=== PATIENT | female | born 1950 | race Caucasian/White ===

== ENCOUNTER 2023-09-24 06:48 | Observation (INO) ==
--- NOTE | 2023-09-02 11:10 | PAT Medication Instructions ---
Medication Instructions Date of Service September 02, 2023 Home Medications acetaminophen 650 mg tablet,extended release 650 mg PO Q12H PRN albuterol sulfate 90 mcg/actuation aerosol inhaler 1 inh inhalation QID PRN calcium carbonate 600 mg-vitamin D3 10 mcg (400 unit) tablet (Calcium 600 + D(3)) 1 tab PO HS cetirizine 10 mg tablet (Zyrtec) 10 mg PO QAM hydrochlorothiazide 25 mg tablet 25 mg PO QAM ibuprofen 200 mg capsule 600 mg PO QAM levothyroxine 50 mcg tablet (Synthroid) 50 mcg PO QAM lisinopril 10 mg tablet 15 mg PO BID lorazepam 1 mg tablet (Ativan) 5 mg PO HS PRN melatonin 5 mg tablet 5 mg PO HS PRN lizexyvfyjpr-trtgdcsg-pbwcas tablet 1 tab PO HS tramadol 50 mg tablet 50 mg PO Q6H PRN ASK your surgeon for instructions ibuprofen 200 mg capsule 600 mg PO QAM DO NOT take the morning of surgery cetirizine 10 mg tablet (Zyrtec) 10 mg PO QAM hydrochlorothiazide 25 mg tablet 25 mg PO QAM lisinopril 10 mg tablet 15 mg PO BID Take morning of surgery With a small sip of water, OTHERWISE NOTHING TO EAT OR DRINK AFTER MIDNIGHT: acetaminophen 650 mg tablet,extended release 650 mg PO Q12H PRN(if needed) albuterol sulfate 90 mcg/actuation aerosol inhaler 1 inh inhalation QID PRN(use if needed; please bring with you to hospital day of surgery if possible) levothyroxine 50 mcg tablet (Synthroid) 50 mcg PO QAM tramadol 50 mg tablet 50 mg PO Q6H PRN(if needed) Take evening before surgery acetaminophen 650 mg tablet,extended release 650 mg PO Q12H PRN(if needed) albuterol sulfate 90 mcg/actuation aerosol inhaler 1 inh inhalation QID PRN(if needed) calcium carbonate 600 mg-vitamin D3 10 mcg (400 unit) tablet (Calcium 600 + D(3)) 1 tab PO HS lisinopril 10 mg tablet 15 mg PO BID lorazepam 1 mg tablet (Ativan) 5 mg PO HS PRN(if needed) melatonin 5 mg tablet 5 mg PO HS PRN(if needed) tramadol 50 mg tablet 50 mg PO Q6H PRN(if needed) jfgrdilnywuq-gnnzjpyv-ybprxe tablet 1 tab PO HS Other Notes If you have any questions please call us at [phone] or [phone] or [phone] or [phone]
--- NOTE | 2023-09-08 11:53 | Anesthesiology Consultation ---
Date of Service September 08, 2023 Assessment & Plan (1) Encounter for pre-operative examination: - S pre-operative evaluation 09/15/23. PAT testing to be faxed to S PCP. - patient anesthesia concerns: she has concern with experience of awareness during bunionectomy. We had a detailed discussion on general vs neuraxial anesthesia, she indicates comfort with plan for neuraxial anesthesia with sedation. She will contact PAT if additional questions or concerns prior to surgery arise prior to surgery. Chart Review Chart Review: Pending: Refer to Additional Notes / Consult section and Patient seen in Pre Admission Testing Teaching & Discussion Pre-Anesthesia Teaching/Discussion Notes: Instructed NPO after midnight before surgery, except medications with 15 cc of water. Medication instructions provided according to the PAT guidelines. History Surgery Operation Date: 09/24/23 07:00 Proposed Procedures p Right Total Knee Arthroplasty - Maxx Weiner MD Height/Weight Height: 5 ft 3.5 in Weight: 110.1 kg Allergies Allergy/AdvReac Type Severity Reaction Status Date / Time moxifloxacin [From Avelox] Allergy Severe severe Verified 09/01/23 10:49 hypotension/syncope clarithromycin [From Biaxin] AdvReac Severe Gastrointestinal Verified 09/01/23 10:49 Upset rosuvastatin [From Crestor] AdvReac Intermediate myalgias Verified 09/08/23 14:49 Medications Home Medications Medication Instructions Recorded Confirmed Last Taken acetaminophen 650 mg 650 mg PO Q12H PRN Pain 09/01/23 09/01/23 Unknown tablet,extended release albuterol sulfate 90 mcg/actuation 1 inh inhalation QID PRN Wheezing 09/01/23 09/01/23 Unknown aerosol inhaler calcium carbonate 600 mg-vitamin 1 tab PO HS 09/01/23 09/01/23 Unknown D3 10 mcg (400 unit) tablet (Calcium 600 + D(3)) cetirizine 10 mg tablet (Zyrtec) 10 mg PO QAM 09/01/23 09/01/23 Unknown hydrochlorothiazide 25 mg tablet 25 mg PO QAM 09/01/23 09/01/23 Unknown ibuprofen 200 mg capsule 600 mg PO QAM 09/01/23 09/01/23 Unknown levothyroxine 50 mcg tablet 50 mcg PO QAM 09/01/23 09/01/23 Unknown (Synthroid) lisinopril 10 mg tablet 15 mg PO BID 09/01/23 09/01/23 Unknown lorazepam 1 mg tablet (Ativan) 5 mg PO HS PRN Restless Leg(S) 09/01/23 09/01/23 Unknown melatonin 5 mg tablet 5 mg PO HS PRN Sleep 09/01/23 09/01/23 Unknown srbymaiwbwza-toyprigd-mtumqk tablet 1 tab PO HS 09/01/23 09/01/23 Unknown tramadol 50 mg tablet 50 mg PO Q6H PRN Pain 09/01/23 09/01/23 Unknown Past Medical History Medical History Anxiety Asthma well controlled, rare res inh use-last use several weeks ago Degenerative disc disease History of COVID-06 Jul 2021 > not hospitalized History of diverticulitis 2020 Hyperlipidemia hx of > no meds Hypertension controlled, stable per pt Hypothyroidism Neuropathy right foot s/p previous surgery Restless legs Patient denies h/o stroke, seizures, heart attack, heart failure, DM, blood clots/DVTs or blood transfusions. Exercise / Class Metabolic Activity III < 4 Walking/Shop/Light housework (denies chest discomfort or shortness of breath with usual activities) Past Family History Family History Grandmother (Maternal) Diabetes Past Surgical History Surgical History H/O ovarian cystectomy right History of bunionectomy of right great toe History of cataract surgery bilat History of cholecystectomy History of colonoscopy January 2023 History of repair of rotator cuff left Hx of foot surgery bilat feet and hardware removed from right foot with fusions in place [place] teeth extracted Past Anesthesia History No Family Hx of Anesthesia Complications and Other (awareness during bunionectomy) History of PONV No Hx of PONV and No Hx of Motion Sickness Social History Smoking Status: Never smoker Do You Dip or Chew Tobacco: No Hx Alcohol Use: Yes alcohol intake frequency: holidays/special occasions only Hx Substance Use: No substance use type: does not use Review of Systems Patient denies chest pain, shortness of breath, dyspnea on exertion, snoring, witnessed apneas, reflux, fever, chills, cough, wheezing, or palpitations. Physical Exam Vital Signs Vitals BP 128/71 P 70 TEMP 98.1 SP02 97% on RA RESP 17 Physical Patient resting comfortably in chair in no acute distress, alert and oriented, responding appropriately throughout visit Full cervical extension range of motion without pain TMD < 3 finger breadths Mallampati Score 2 Dentition: upper right partial and several crowns, denies chipped or loose teeth, implants or bridges Lungs: normal respiratory effort. Good air movement, clear throughout to auscultation, no adventitious breath sounds Cardiac: regular rate and rhythm, no murmurs noted Carotid arteries: negative bruit bilat Lab Results Anesthesia Preop Results Results Anesthesia Widget: WBC 9.52 K/ul (4.8-10.8) 09/08/23 Hgb 12.4 g/dl (12.0-16.0) 09/08/23 Hct 37.5 % (37.0-47.0) 09/08/23 Plt 388 K/uL (130-400) 09/08/23 Na 140 mmol/L (136-145) 09/08/23 K 3.6 mmol/L (3.5-5.1) 09/08/23 Cl 104 mmol/L (98-107) 09/08/23 CO2 29 mmol/L (21-32) 09/08/23 BUN 21 mg/dl (6-23) 09/08/23 Creat 0.84 mg/dl (0.6-1.2) 09/08/23 Glucose Level 86 mg/dl (70-99(Fasting)) 09/08/23 PT 10.6 Seconds (9.0-12.0) 09/08/23 PTT 28 Seconds (21-31) 09/08/23 INR 1.0 (0.9-1.1) 09/08/23 Urine Color Yellow 09/08/23 Urine Appearance Clear (Clear) 09/08/23 Urine pH 5.0 (4.5-7.5) 09/08/23 Urine Specific [place] 1.017 (1.000-1.030) 09/08/23 Urine Protein Negative (Negative) 09/08/23 Urine Glucose (UA) Negative (Negative) 09/08/23 Urine Ketones Negative (Negative) 09/08/23 Urine Blood Negative (Negative) 09/08/23 Urine Nitrite Negative (Negative) 09/08/23 Urine Bilirubin Negative (Negative) 09/08/23 Urine Urobilinogen Negative (Negative) 09/08/23 Urine Leukocyte Esterase 1+ (Negative) H 09/08/23 Urine WBC (Auto) 1-5 /hpf (0-5) 09/08/23 Urine RBC (Auto) 0-4 /hpf (0-4) 09/08/23 Urine Hyaline Casts (Auto) 0 /lpf (0-5) 09/08/23 Urine Epithelial Cells (Auto) >30 /lpf (0-5) H 09/08/23 Urine Bacteria (Auto) Negative (Negative) 09/08/23 Blood Type O Negative 09/08/23 Antibody Screen NEGATIVE 09/08/23 Testing Electrocardiogram Date: 09/08/23 NSR, rate 68 bpm Low voltage QRS Chest X-Ray Date: 09/08/23 No acute chest disease.
--- NOTE | 2023-09-24 06:28 | History & Physical Bridge Note ---
Date of Service September 24, 2023 History & Physical Bridge Note I have examined the patient, reviewed the History & Physical and in the interval since the performance of the History & Physical I have noted the following changes of clinical significance: no changes noted
[~2023-09-24 06:48] MED LIST: BUPIVACAINE 0.5 % 5 MG/1 ML PF 10ML VIAL ONE; ROPIVACAINE 0.5% 5 MG/ML 30 ML VIAL ONE; ROPIVACAINE 0.5% HCL/PF 246 MG, Ketorolac (*for OR use only*) 30 MG, EPINEPHrine 30MG/3... INFIL SCH
[2023-09-24] MEDS: LR 60ML/HR IV SCH (07:46)
[2023-09-24] MEDS: LR 500ML BOLUS, THEN 15ML/HR IV SCH (07:47)
[2023-09-24] MEDS ORDERED: fentaNYL citrate PF 100 MCG/2 ML VIAL ONE (07:49)
[2023-09-24] MEDS ORDERED: MIDAZOLAM HCL 1 MG/ML 2ML VIAL ONE (07:49)
--- OUTSIDE RECORDS SUMMARY | 2023-09-24 08:48 | External Medical Summary | Summary of Care ---
Author Name Unknown Organization [facility] Address [address] [place] [address] Phone [phone] Care Team Providers Care Fruit Stuffer Name Role Phone Palmira Dutton PA-C Primary Care Provider Encounter Details Date Type Department Care Team (Late st Contact Info) Description 09/10/2023 Orders Only Family Practice, [facility] [address], [place] [id number] [phone] Palmira Dutton PA-C [address] [place] [address] Allergies Active Allergy Reactions Criticality Noted Date Comments Moxifloxacin Hcl In Nacl 09/07/2008 BP dropped dramatically Quinolones 09/07/2008 Pt states she is allergic to avelox-unsure which one-but BP dropped dramatically Clarithromycin 06/15/2018 Severe diarrhea Cat Dander 06/15/2018 Rosuvastatin Muscle pain 04/16/2021 documented as of this encounter (statuses as of 09/10/2023) Medications Medication Sig Dispensed Refills Start Date End Date Status IBUPROFEN 600 MG PO TABS Take by mouth daily. 0 Active Multiple Vitamins-Minerals (THERAPEUTIC MULTIVIT/MINERAL) TABS Take 1 Tab by mouth. 0 Active acetaminophen (TYLENOL) 500 MG Tablet Take 2 Tablets by mouth daily as needed. 0 Active Calcium Carbonate-Vitamin D 600-400 MG-UNIT per tablet Take 1 Tablet by mouth. 0 Active albuterol HFA (PROVENTIL HFA) 108 (90 BASE) MCG/ACT inhaler Inhale 1 Puff by mouth every 6 hours as needed for Wheezing. 1 Inhaler 3 03/31/2019 Active Cetirizine HCl 10 MG Oral Capsule 0 Active Trospium Chloride 20 MG Oral Tablet (Sanctura)Indications :Overactive bladder Take 1 Tablet by mouth in the morning and 1 Tablet before bedtime. 60 Tablet 5 03/20/2023 Active hydroCHLOROthiazide 25 MG Oral Tablet (Hydrodiuril)Indicati ons:Essential hypertension with goal blood pressure less than 140/90 Take 1 Tablet by mouth in the morning. 90 Tablet 3 04/08/2023 Active Lisinopril 10 MG Oral Tablet (Prinivil)Indications :Essential hypertension with goal blood pressure less than 140/90 TAKE 1 AND 1/2 TABLETS BY MOUTH TWICE DAILY 270 Tablet 3 04/08/2023 Active traMADol HCl 50 MG Oral Tablet (Ultram)Indications:B ilateral primary osteoarthritis of knee Take 1 Tablet by mouth every 6 hours as needed for Pain, Severe. 12 Tablet 0 04/08/2023 Active LORazepam 0.5 MG Oral Tablet (Ativan) Take 1 Tablet by mouth daily as needed for Anxiety. 30 Tablet 5 05/12/2023 Active Levothyroxine Sodium 50 MCG Oral Tablet (Levoxyl) take 1 tablet by mouth every day first thing in the morning at least 30 minutes prioir to breakfast or other meds 90 Tablet 1 07/17/2023 Active documented as of this encounter (statuses as of 09/10/2023) Active Problems Problem Noted Date Diagnosed Date Right knee DJD 01/27/2023 Bilateral primary osteoarthritis of knee 022 Body mass index (BMI) of 40.0 to 44.9 in adult 0 01/25/2019 Overview: Per Obesity protocol Mixed hyperlipidemia 07/08/2018 Essential hypertension with goal blood pressure less than 140/90 07/08/2018 TIFFANIE (generalized anxiety disorder) 07/08/2018 Acquired hypothyroidism 07/08/2018 Overactive bladder 07/08/2018 Tibialis tendinitis 04/19/2009 Flat foot(734) 04/19/2009 Joint pain, foot 11/11/2008 documented as of this encounter (statuses as of 09/10/2023) Resolved Problems Problem Noted Date Diagnosed Date Resolved Date Hx of stress fx 11/05/2011 01/05/2019 documented as of this encounter (statuses as of 09/10/2023) Immunizations Name Administration Dates Next Due PPD 03/10/2018 documented as of this encounter Social History Tobacco Use Types Packs/Day Years Used Date Smoking Tobacco: Never Smokeless Tobacco: Never Alcohol Use Standard Drinks/Week Comments Not Currently 0 (1 standard drink = 0.6 oz pur e alcohol) social PHQ-2 Answer Date Recorded PHQ Adult Total Score 2 04/08/2023 Hunger Vital Sign Answer Date Recorded Within the past 12 months, y ou worried that your food would run out before you got the money to buy more. Never true 09/04/19 23 Within the past 12 months, t he food you bought just didn't last and you didn't have money to get more. Never true 09/04/2022 Sex and Gender Information Value Date Recorded Sex Assigned at Female 02/26/2022 12:03 PM EDT Gender Identity Female 02/26/2022 12:03 PM EDT Sexual Orientation Straight 02/26/2022 12 :03 PM EDT Job Start Date Occupation Industry Not on file Not on file Not on file documented as of this encounter Plan of Treatment Upcoming Encounters Date Type Department Care Team (Late st Contact Info) Description 09/15/2023 8:00 AM EST Office Visit [address] [address] Palmira Dutton PA-C [address] [place] [phone] 10/14/2023 11:40 AM EST Office Visit [address] [address] Palmira Dutton PA-C [address] [place] [phone] Health Maintenance Due Date Last Done Comments COVID-19 Vaccine (#1) 1950 Pneumococcal Vaccine: 65+ Years (1 - PCV) 01/27/1958 Albumin/Creatinine Ratio 01/27/1970 DTaP,Tdap,and Td Vaccines (1 - Tdap) 01/27/1971 Zoster Vaccines (1 of 2) 01/27/2002 Hepatitis B (1 of 3 - Risk 3-dose series) 2012 Influenza Vaccine (FLU shot) (#1) 2023 DXA Scan 04/30/2023 04/30/2016 COLONOSCOPY-ANNUAL AGES 18-100 01/25/2024 01/24/2023, 05/15/2012 GFR 04/04/2024 09/08/2023, 03/18, 08/30/2022, Additional history exists TSH 04/04/2024 04/04/2023, 08/18, 08/20/2021, Additional history exists Depression Screening 04/08/2024 04/08/2023 Mammogram 04/28/2024 04/28/2023, 01/2022, 07/02/2021, Additional history exists Lipid Panel 04/04/2028 04/04/2023, 08/18, 02/22/2022, Additional history exists Colonoscopy Discontinued 01/24/2023, 05/15/2012 Colorectal Cancer Screening Discontinued Cologuard Discontinued Fecal Occult Blood Test Discontinued GARDASIL-HPV IMMUNIZATION SERIES Aged Out No longer eligible based on patient's age to complete this topic MENINGOCOCCAL (MENACTRA/MENVEO) Aged Out No longer eligible based on patient's age to complete this topic Sigmoidoscopy Discontinued documented as of this encounter Medical Devices Implanted Type Area Hand Wood Sander Device Identifier Shelf Expiration Date Model / Serial / Lot Graft Chamber Small [id number] - [id number] Implanted:Qty: 1 on 12/01/2008 [place] [facility] [place] - Human Left: Foot [employer] [id number] / [id number] / Staple Compr [id number] - [id number] Implanted:Qty: 1 on 12/01/2008 [place] [facility] [place]: Foot [employer] [id number] / / [place] S[employer] - [id number] Implanted:Qty: 1 on 03/20/2020 by Isaías Day MD at [facility] Left: Shoulder [employer] 12/16/2023 [id number] / [id number] documented as of this encounter Procedures Procedure Name Priority Date/Time Associated Diagnosis Comments XR CHEST 2 VIEWS Routine 09/08/2023 documented in this encounter Results * XR CHEST 2 VIEWS (09/08/2023) Anatomical Region Laterality Modality Chest Other 09/08/2023 Maxx Weiner MD RADIOLOGY ([facility]) documented in this encounter Advance Directives Latest Code Status on File Code Status Date Activated Date Inactivated Comments Full Code 03/20/2020 11:50 AM 03/20/2020 5:36 PM This o rder reflects the patients wishes and were consensually agreed upon. Code Status History Code Status Date Activated Date Inactivated Comments Full Code 12/01/2008 3:53 PM 12/02/2008 2:42 PM Care Teams Fruit Stuffer Relationship Specialty Start Date End Date Palmira Dutton PA-C [address] [place] [address] PCP - General Physician Car Body Inspector 11/07/18 documented as of this encounter
--- OUTSIDE RECORDS SUMMARY | 2023-09-24 08:48 | External Medical Summary | Summary of Care ---
Author Name Unknown Organization [facility] Address [address] [place] [address] Phone [phone] Care Team Providers Care Shank Sorter Name Role Phone Palmira Dutton PA-C Primary Care Provider Reason for Visit * Reason Comments pre-op exam Right Total Knee Rep lacement - Dr Weiner - surgery is scheduled for 09/24/2023 Encounter Details Date Type Department Care Team (Late st Contact Info) Description 09/15/2023 8:00 AM EST Office Visit [facility] [address] [place], [place] [id number] [phone] Palmira Dutton PA-C [address] [place] [address] Preop examination*; Essential hypertension with goal blood pressure less than 140/90; Osteoarthritis of right knee, unspecified osteoarthritis type; Body mass index (BMI) of 40.0 to 44.9 in adult (HCC) Allergies Active Allergy Reactions Criticality Noted Date Comments Moxifloxacin Hcl In Nacl 09/07/2008 BP dropped dramatically Quinolones 09/07/2008 Pt states she is allergic to avelox-unsure which one-but BP dropped dramatically Clarithromycin 06/15/2018 Severe diarrhea Cat Dander 06/15/2018 Rosuvastatin Muscle pain 04/16/2021 documented as of this encounter (statuses as of 09/15/2023) Medications Medication Sig Dispensed Refills Start Date [...] Active Trospium Chloride 20 MG Oral Tablet (Sanctura)Indicatio ns:Overactive bladder Take 1 Tablet by mouth in the morning and 1 Tablet before bedtime. 60 Tablet 5 03/20/2023 Active hydroCHLOROthiazide 25 MG Oral Tablet (Hydrodiuril)Indica tions:Essential hypertension with goal blood pressure less than 140/90 Take 1 Tablet by mouth in the morning. 90 Tablet 3 04/08/2023 Active Lisinopril 10 MG Oral Tablet (Prinivil)Indicatio ns:Essential hypertension with goal blood pressure less than 140/90 TAKE 1 AND 1/2 TABLETS BY MOUTH TWICE DAILY 270 Tablet 3 04/08/2023 Active traMADol HCl 50 MG Oral Tablet (Ultram)Indications :Bilateral primary osteoarthritis of knee Take 1 Tablet [...] other meds 90 Tablet 1 07/17/2023 Active predniSONE 20 MG Oral Tablet (Deltasone) Take 1 Tablet by mouth in the morning and 1 Tablet before bedtime. Do all this for 3 days. 6 Tablet 0 06/22/2023 09/15/19 24 Discontinued documented as of this encounter (statuses as of 09/15/2023) Active Problems Problem Noted Date Diagnosed Date [...] as of this encounter (statuses as of 09/15/2023) Resolved Problems Problem Noted Date Diagnosed Date Resolved Date Hx of stress fx 11/05/2011 01/05/2019 documented as of this encounter (statuses as of 09/15/2023) Immunizations Name Administration Dates Next Due PPD [...] on file documented as of this encounter Last Filed Vital Signs Vital Sign Reading Time Taken Comments Blood Pressure 132/80 09/15/2023 8:11 AM EST Pulse 99 09/15/2023 8:11 AM EST Temperature 36.7 C (98 F) 09/15/2023 8:11 AM EST Respiratory Rate 18 09/15/2023 8:11 AM EST Oxygen Saturation 98% 09/15/2023 8:11 AM EST Inhaled Oxygen Concentration - - Weight 109.4 kg (241 lb 1.6 oz) 09/15/2023 8:11 AM EST Height 162.6 cm (5' 4") 09/15/2023 8:11 AM EST Body Mass Index 41.38 09/15/2023 8:11 AM EST documented in this encounter Progress Notes * Palmira Dutton PA-C - 09/15/2023 8:20 AM EST Subjective: Maeve Gill is a 73 year old female. Presents at the request of Dr. Weiner for medical clearance for right total knee, surgery isscheduled for at [facility]. Major Risk Factors for Cardiac Events: History of AR, cardiac revascularization, cardiac bypass: No History of cerebrovascular accident or TIA: No History of systolic heart failure: No History of insulin-dependent diabetes: No History of chronic kidney disease (creatinine greater than 2): No Anesthesia History: Type of Anesthesia: spinal, MAC Anesthesia reaction:No History of surgical complications: none Personal history of venous thromboembolic disease: none Functional Assessment: They are able to walk up a flight of stairs, do heavy house work like vacuuming, and grocery shop. The patient's functional status is good (greater than 4 METS). Can take care of self, such as eat, dress or use the toilet=1MET Can walk to block or go up a flight of steps=4 METs Can do heave house work=4-10 METs Can participate in strenuous sports=>10 METs} PHM: Patient Active Problem List Diagnosis Code Joint pain, foot M25.579 Tibialis tendinitis M76.829 Flat foot(734) M21.40 Mixed hyperlipidemia E78.2 Essential hypertension with goal blood pressure less than 140/90 I10 TIFFANIE (generalized anxiety disorder) F41.1 Acquired hypothyroidism E03.9 Overactive bladder N32.81 Body mass index (BMI) of 40.0 to 44.9 in adult (HCC) Z68.41 Bilateral primary osteoarthritis of knee M17.0 Right knee DJD M17.11 Current Outpatient Medications Medication Sig Dispense Refill IBUPROFEN 600 MG PO TABS Take by mouth daily. Multiple Vitamins-Minerals (THERAPEUTIC MULTIVIT/MINERAL) TABS Take 1 Tab by mouth. acetaminophen (TYLENOL) 500 MG Tablet Take 2 Tablets by mouth daily as needed. Calcium Carbonate-Vitamin D 600-400 MG-UNIT per tablet Take 1 Tablet by mouth. albuterol HFA (PROVENTIL HFA) 108 (90 BASE) MCG/ACT inhaler Inhale 1 Puff by mouth every 6 hours asneeded for Wheezing. 1 Inhaler 3 Cetirizine HCl 10 MG Oral Capsule Trospium Chloride 20 MG Oral Tablet (Sanctura) Take 1 Tablet by mouth in the morning and 1 Tablet before bedtime. 60 Tablet 5 hydroCHLOROthiazide 25 MG Oral Tablet (Hydrodiuril) Take 1 Tablet by mouth in the morning. 90 Tablet 3 Lisinopril 10 MG Oral Tablet (Prinivil) TAKE 1 AND 1/2 TABLETS BY MOUTH TWICE DAILY 270 Tablet 3 traMADol HCl 50 MG Oral Tablet (Ultram) Take 1 Tablet by mouth every 6 hours as needed for Pain, Severe. 12 Tablet 0 LORazepam 0.5 MG Oral Tablet (Ativan) Take 1 Tablet by mouth daily as needed for Anxiety. 30 Tablet5 Levothyroxine Sodium 50 MCG Oral Tablet (Levoxyl) take 1 tablet by mouth every day first thing in the morning at least 30 minutes prioir to breakfast or other meds 90 Tablet 1 No current facility-administered medications for this visit. 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/07 traditional serrated adenoma Cyst of ovary 9 cmcyst on ovary on R side/found on CT scan Depressive disorder Diverticulosis of colon 01/24/202302/07 colonoscopy 04/29 colonoscopy Essential hypertension with goal blood pressure less than 140/90 07/08/2018 TIFFANIE (generalized anxiety disorder) 07/08/2018 Joint pain, foot 11/11/2008 Mixed hyperlipidemia 07/08/2018 Past Surgical History: Procedure Laterality Date ARTHO,SHOUL,W/ROTATOR CUFF Left 03/20/2020 ARTHROSCOPY SHOULDER ROTATOR CUFF performed by Isaías Day MD at OR [facility] CATARACT SURGERY,COMPLEX Bilateral COLONOSCOPY 05/15/2012 Diverticulosis DENTAL SURGERY PROCEDURE NEC FOOT/TOE SURGERY NEC Right 12/2014 and 08/31/2019 FUSION OF ANKLE JOINT 12/01/2008 ARTHRODESIS ANKLE performed by VAN CARABALLO at [facility] FUSION OF FOOT BONES, TRIPLE 12/01/2008 TRIPLE ARTHRODESIS performed by VAN CARABALLO at OR [facility] INFORMATION Derm surgery INFORMATION 2013 pelvic mass - benign LIGATE/CUT OVIDUCT(S) REMOVAL OF OVARIAN CYST(S) 05/2012 REMOVE GALLBLADDER 09/02/2013 lap hermelindo Review of patient's allergies indicates: Allergen Reactions Avelox [Moxifloxacin Hcl In Nacl] BP dropped dramatically Avelox [Quinolones] Pt states she is allergic to avelox-unsure which one-but BP dropped dramatically Biaxin [Clarithromycin] Severe diarrhea Cats [Cat Dander] Crestor [Rosuvastatin] Muscle pain Family History Problem Relation Age of Onset Thyroid Disorder Mother Cancer Mother Uterine Hypertension Mother Breast Cancer Sister Thyroid Disorder Sister Cancer Sister Stage 1 breast CA Breast Cancer Sister Other (Sudden ) Uncle (Unspecified) Family Status Relation Status Mo (Not Specified) Sis (Not Specified) Sis Alive UNCLE (Not Specified) Social History Tobacco Use Smoking status: Never Smokeless tobacco: Never Substance Use Topics Alcohol use: Not Currently Comment: social Vaping/E-Cigarette Use Vaping/E-Cigarette Use Never User Vaping/E-Cigarette Substances Vaping/E-Cigarette Devices Review of Systems Constitutional: Negative for chills and fever. Respiratory: Negative for cough and shortness of breath. Cardiovascular: Negative for chest pain and palpitations. Gastrointestinal: Negative for abdominal pain, constipation and diarrhea. Genitourinary: Negative. Musculoskeletal: Positive for arthralgias and gait problem. Skin: Negative for rash. Objective: BP 132/80 (BP Site: Left Arm, BP Position: Sitting, BP Cuff Size: Large) | Pulse 99 | Temp 36.7 C(98 F) (Tympanic) | Resp 18 | Ht 1.626 m (5' 4") | Wt 109.4 kg (241 lb 1.6 oz) | SpO2 98% | BMI 41.38 kg/m | BSA 2.22 m Physical Exam Constitutional: Appearance: Normal appearance. She is obese. Eyes: Extraocular Movements: Extraocular movements intact. Conjunctiva/sclera: Conjunctivae normal. Pupils: Pupils are equal, round, and reactive to light. Neck: Vascular: No carotid bruit. Cardiovascular: Rate and Rhythm: Normal rate and regular rhythm. Heart sounds: Normal heart sounds. No murmur heard. Pulmonary: Effort: Pulmonary effort is normal. Breath sounds: Normal breath sounds. No wheezing. Abdominal: General: Bowel sounds are normal. Palpations: Abdomen is soft. Tenderness: There is no abdominal tenderness. Musculoskeletal: Right knee: Decreased range of motion. Right lower leg: No edema. Left lower leg: No edema. Lymphadenopathy: Cervical: No cervical adenopathy. Neurological: General: No focal deficit present. Mental Status: She is alert and oriented to person, place, and time. Psychiatric: Mood and Affect: Mood normal. Behavior: Behavior normal. ASSESSMENT: Encounter Diagnoses Name Primary? Preop examination Yes Essential hypertension with goal blood pressure less than 140/90 Osteoarthritis of right knee, unspecified osteoarthritis type Body mass index (BMI) of 40.0 to 44.9 in adult (HCC) Labs and EKG reviewed. Labs are unremarkable (UA not indicative of a UTI) EKG by my review is significant for NSR. PLAN: Patient is medically cleared. Revised Cardiac Risk Index (RCRI): Six independent predictors of major cardiac complications are: 1. High-risk type of surgery (examples include vascular and any open intraperitoneal or intrathoracic procedures). No 2. History of ischemic heart disease (history of myocardial infarction or positive exercise test, current compliant of chest pain considered to be secondary to myocardia ischemia, use of nitrate therapy, or ECG with pathological Q waves; do not count prior coronary revascularization procedure unless one of the other criteria for ischemic heart disease is present). No 3. History of heart failure. No 4. History of cerebrovascular disease. No 5. Diabetes mellitus requiring treatment with insulin. No 6. Preoperative serum creatinine >2.0 mg/dL (177 micromol/L). No Pt has revised cardiac index score of No Risk Factors- 0.4% (95% CI: 0.1-0.8) for the surgery scheduled. This office note will be sent to surgeon. Palmira Dutton PA-C documented in this encounter Nursing Notes * Solange Correia MED ASSIST - 09/15/2023 8:14 AM EST Patient presents today for pre-op physical for Right Total Knee Replacement - Dr Weiner - surgery is scheduled for 09/24/2023 Patient has been verbally educated on the need or importance of Immunizations: shingles, flu, pneu and tetanus vaccines. and has declined topic(s). ALLI Castro documented in this encounter Plan of Treatment Upcoming Encounters Date Type Department Care Team (Late st Contact Info) Description 10/14/2023 11:40 AM EST Office Visit Family [facility] [address] [place] [address] Palmira Dutton PA-C [address] [place] [address] Health Maintenance Due Date Last Done Comments COVID-19 Vaccine (#1) 1950 Pneumococcal Vaccine: 65+ Years (1 - PCV) 01/27/1958 Albumin/Creatinine Ratio 01/27/1970 DTaP,Tdap,and Td Vaccines (1 - Tdap) 01/27/1971 Zoster Vaccines (1 of 2) 01/27/2002 Hepatitis B (1 of 3 - Risk 3-dose series) 2012 Influenza Vaccine (FLU shot) (#1) 2023 DXA Scan 04/30/2023 04/30/2016 COLONOSCOPY-ANNUAL AGES 18-100 01/25/2024 01/24/2023, 05/15/2012 TSH 04/04/2024 04/04/2023, 08/18, 08/20/2021, Additional history exists Depression Screening 04/08/2024 04/08/2023 Mammogram 04/28/2024 04/28/2023, 01/2022, 07/02/2021, Additional history exists GFR 09/08/2024 09/08/2023, 03/18, 08/30/2022, Additional history exists Lipid Panel 04/04/2028 04/04/2023, [...] this encounter Medical Devices Implanted Type Area Machinist Apprentice Wood Device Identifier Shelf Expiration Date Model / Serial / Lot Graft Chamber Small [id number] - [id number] Implanted:Qty: 1 on 12/01/2008 at OR [facility] Tissue - Human Left: Foot [employer] [id number] / [id number] 6 / Staple Compr 15x15 [id number] - [id number] Implanted:Qty: 1 on 12/01/2008 at OR [facility] Left: Foot [employer] [id number] / / [place] Suture Biocomposite - [id number] Implanted:Qty: 1 on 03/20/2020 by Isaías Day MD at OR [facility] Left: Shoulder [employer] 12/16/2023 [id number] / / [id number] documented as of this encounter Visit Diagnoses Diagnosis Preop examination- Primary Preoperative examination, unspecified Essential hypertension with goal blood pressure less than 140/90 Osteoarthritis of right knee, unspecified osteoarthritis type Body mass index (BMI) of 40.0 to 44.9 in adult (HCC) documented in this encounter Advance Directives Latest Code Status on File Code Status Date Activated Date Inactivated Comments Full Code 03/20/2020 11:50 AM 03/20/2020 5:36 PM This o rder reflects the patients wishes and were consensually agreed upon. Code Status History Code Status Date Activated Date Inactivated Comments Full Code 12/01/2008 3:53 PM 12/02/2008 2:42 PM Care Teams Shank Sorter Relationship Specialty Start Date End Date Palmira Dutton PA-C [address] [place] [phone] PCP - General Physician Compound Worker 11/07/18 documented as of this encounter
--- OUTSIDE RECORDS SUMMARY | 2023-09-24 08:48 | External Medical Summary | Summary of Care ---
Author Name Unknown Organization [facility] Address [address] [place] [address] Phone [phone] Care Team Providers Care Linseed Cake Trimmer Name Role Phone Palmira Dutton PA-C Primary Care Provider Encounter Details Date Type Department Care Team (Late st Contact Info) Description 09/10/2023 Orders Only Family Practice, [facility] [address] [place], [place] [phone] Palmira Dutton PA-C [address] [place] [address] Allergies Active Allergy Reactions Criticality [...] 09/15/2023 8:00 AM EST Office Visit [address] [address] Palmira Dutton PA-C [address] [place] [address] 10/14/2023 11:40 AM EST Office Visit [address] [address] Palmira Dutton PA-C [address] [place] [address] Health Maintenance Due Date Last Done Comments [...] this encounter Medical Devices Implanted Type Area Day Care Provider Device Identifier Shelf Expiration Date Model / Serial / Lot Graft Chamber Small [id number] - [id number] Implanted:Qty: 1 on 12/01/2008 at OR [facility] Tissue - Human Left: Foot [employer] [id number] / 07-5402-12 6 / Staple Compr 15x15 [id number] - [id number] Implanted:Qty: 1 on 12/01/2008 at OR [facility] Left: Foot [employer] [id number] / / [place] Suture Biocomposite - [id number] Implanted:Qty: 1 on 03/20/2020 by Isaías Day MD at OR [facility] Left: Shoulder [employer] 12/16/2023 [id number] / / [id number] documented as of this encounter Procedures Procedure Name Priority Date/Time Associated Diagnosis Comments CHEMISTRY-OUTSIDE Routine 09/08/2023 documented in this encounter Results * CHEMISTRY-OUTSIDE (09/08/2023) Not all results display below - see scan for full detail OUTSIDE LAB (SEE SCANNED REPORT) Comment:SEE SCAN - PTINR ,BM P, UA, CBDE CREATININE-OUTSID E LAB 0.84 0.6 - 1.2 MG/DL OUTSIDE LAB (SEE SCANNED REPORT) EGFR-OUTSIDE LAB 69.9 ML/MIN OUT SIDE LAB (SEE SCANNED REPORT) POTASSIUM-OUTSIDE LAB 3.6 3.5 - 5.1 MMOL/L OUTSIDE LAB (SEE SCANNED REPORT) GLUCOSE-OUTSIDE LAB 86 70 - 99 MG/DL OUTSIDE LAB (SEE SCANNED REPORT) HOURS FASTING OUTSID E LAB (SEE SCANNED REPORT) TRIGLYCERIDES-OUT SIDE LAB OUTSIDE LAB (SEE SCANNED REPORT) CHOLESTEROL-OUTSI DE LAB OUTSIDE LAB (SEE SCANNED REPORT) HDL-OUTSIDE LAB OUTS [facility] (SEE SCANNED REPORT) CHOL/HDL RATIO-OUTSIDE LAB OUTSIDE LA B (SEE SCANNED REPORT) LDL (CALCULATED)-OUTS [facility] LAB OUTSIDE LAB (SEE SCANNED REPORT) LDL (DIRECT MEASURE)-OUTSIDE LAB OUTSIDE LAB (SEE SCANNED REPORT) HEMOGLOBIN, L5A-[id number] LAB OUTSIDE LAB (SEE SCANNED REPORT) PHOSPHORUS-OUTSID E LAB OUTSIDE LAB (SEE SCANNED REPORT) PTH-OUTSIDE LAB OUTS [facility] LAB (SEE SCANNED REPORT) MICROALBUMIN RATIO-OUTSIDE LAB OUTSIDE LA B (SEE SCANNED REPORT) PROTEIN, UA-OUTSIDE LAB OUTSIDE LAB (SEE SCANNED REPORT) HEMOGLOBIN-OUTSID E LAB 12.4 12.0 - 16.0 G/DL OUTSIDE LAB (SEE SCANNED REPORT) 09/08/2023 Maxx Weiner MD LABORATORY OUTSIDE LAB (SEE SCANNED REPORT) documented in this encounter Advance Directives Latest Code Status on File Code Status Date Activated Date Inactivated Comments Full Code 03/20/2020 11:50 AM 03/20/2020 5:36 PM This o rder reflects the patients wishes and were consensually agreed upon. Code Status History Code Status Date Activated Date Inactivated Comments Full Code 12/01/2008 3:53 PM 12/02/2008 2:42 PM Care Teams Linseed Cake Trimmer Relationship Specialty Start Date End Date Dutton, Palmira Masha, PA-C [facility] [place], [place] [phone] PCP - General Physician Intelligence Clerk 11/07/18 documented as of this encounter
--- OUTSIDE RECORDS SUMMARY | 2023-09-24 08:48 | External Medical Summary | Summary of Care ---
Author Name Unknown Organization [facility] Address [address] [place] [address] Phone [phone] Care Team Providers Care Histology Technologist Name Role Phone Palmira Dutton PA-C Primary Care Provider Encounter Details Date Type Department Care Team (Late st Contact Info) Description 09/08/2023 Result Scan Unspecified Department <No scans attached> Allergies Active Allergy Reactions Criticality Noted Date [...] Description 09/15/2023 8:00 AM EST Office Visit [address] [address] Palmira Dutton PA-C [address] [place] [address] 10/14/2023 11:40 AM EST Office Visit [address] [address] Palmira Dutton PA-C [address] [place] [address] Health Maintenance Due Date Last Done Comments [...] this encounter Medical Devices Implanted Type Area Cost Controller Device Identifier Shelf Expiration Date Model / Serial / Lot Graft Chamber Small [id number] - [id number] Implanted:Qty: 1 on 12/01/2008 [place] [facility] Tissue - Human Left: Foot [employer] [id number] / 07-5402-12 6 / Staple Compr 15x15 [id number] - [id number] Implanted:Qty: 1 on 12/01/2008 at [place] [facility] Left: Foot [employer] [id number] / / [place] Suture Biocomposite - [id number] Implanted:Qty: 1 on 03/20/2020 by Isaías Day MD at OR [facility] Left: Shoulder [employer] 12/16/2023 [id number] / / [id number] documented as of this encounter Procedures Procedure Name Priority Date/Time Associated Diagnosis Comments EKG SCANNED RESULT 09/08/2023 documented in this encounter Results * EKG SCANNED RESULT (09/08/2023) 09/08/2023 No Physician Data Unknown EKG documented in this encounter Advance Directives Latest Code Status on File Code Status Date Activated Date Inactivated Comments Full Code 03/20/2020 11:50 AM 03/20/2020 5:36 PM This o rder reflects the patients wishes and were consensually agreed upon. Code Status History Code Status Date Activated Date Inactivated Comments Full Code 12/01/2008 3:53 PM 12/02/2008 2:42 PM Care Teams Histology Technologist Relationship Specialty Start Date End Date Palmira Dutton PA-C [address] [place] [address] PCP - General Physician Unhairing Machine Operator 11/07/18 documented as of this encounter
--- OUTSIDE RECORDS SUMMARY | 2023-09-24 08:48 | External Medical Summary | Continuity of Care Document ---
Author Name Unknown Organization [id number] Address [address] [place] [id number] Care Team Providers Care Guest Services Attendant Name Role Phone Palmira Dutton Primary Care Physician [phone] Encounter [facility] [id number] Date(s): 09/08/23 - 09/08/23 [facility] [address] [id number] [facility] [address] [place] [id number] Encounter Diagnosis Bilateral primary osteoarthritis of knee(Discharge Diagnosis) - 09/08/23 S/P total knee replacement using cement(Discharge Diagnosis) - 09/08/23 Discharge Disposition: Home or Self Care Attending Physician: MD Husam, Maxx Leiva Referring Physician: GRETA Palomo Cory D Allergies, Adverse Reactions, Alerts Substance Reaction Severity Status Biaxin GI issues Active Avelox Hypotension Active Medications Ativan 0.5 mg oral tablet Start: 04/09/19 10:47:00 EDT, 1 tab, PO, PRN: as needed for anxiety Start Date: 04/09/19 Status: Ordered Calcium 600+D oral tablet Start: 08/25/19 13:49:00 EST, 1 tab, PO, qhs Start Date: 08/25/19 Status: Ordered Euflexxa 10 mg/mL intra-articular solution Start: 06/07/22 13:29:00 EDT, 20 mg =, intra-articular, q7days, Disp# 12 mL, bre knee euflexxa series, Brand Medically Necessary Start Date: 06/07/22 Status: Ordered hydroCHLOROthiazide 25 mg oral tablet Start: 10/12/20 15:26:00 EST, 1 tab, PO, Daily Start Date: 10/12/20 Status: Ordered lisinopril 10 mg oral tablet Start: 02/04/22 8:30:00 EDT, 1 tab, PO, Daily, 15mg daily Start Date: 02/04/22 Status: Ordered multivitamin Start: 04/09/19 10:49:00 EDT, 1 tab, PO, Daily Start Date: 04/09/19 Status: Ordered Synthroid 50 mcg (0.05 mg) oral tablet Start: 04/09/19 10:46:00 EDT, 1 tab, PO, Daily Start Date: 04/09/19 Status: Ordered traMADol 50 mg oral tablet Start: 04/24/23 14:47:00 EDT, 1 tab, PO, q4h, PRN: as needed for pain Start Date: 04/24/23 Status: Ordered trospium 20 mg oral tablet Start: 08/25/19 13:52:00 EST, 1 tab, PO, PRN Start Date: 08/25/19 Status: Ordered Ventolin HFA 90 mcg/inh inhalation aerosol Start: 08/25/19 13:48:00 EST, 2 puff, inhaled, qid, PRN: as needed for wheezing Start Date: 08/25/19 Status: Ordered ZyrTEC 10 mg oral tablet Start: 04/09/19 10:47:00 EDT, 1 tab, PO, Daily Start Date: 04/09/19 Status: Ordered Mental Status 09/08/23 Barriers to Learning one year None evide nt Mandatory Health Literacy Documentation Yes Health Literacy Communication Barriers N ever Primary Language Greenlandic Problem List Condition Confirmation Course Effective Dates Status H ealth Status Informant Arthritis Confirmed Active Cataracts, bilateral Confirmed Active Thyroid disease Confirmed Active Hypertension Confirmed Active Hypothyroid Confirmed Active Bilateral knee pain Confirmed Active Bilateral primary osteoarthritis of knee Confirmed Active Diagnosis Diagnosis Type Effective Dates Health Status Clinical Service Informant S/P total knee replacement using cement Discharge Diagnosis 09/08/23 Non-Specified Bilateral primary osteoarthritis of knee Discharge Diagnosis 09/08/23 Procedures Procedure Date Related Diagnosis Body Site Status REPAIR ROTATOR CUFF ACUTE 03/20/20 Completed Cholecystectomy 2015 Completed GASTROCNEMUS RELEASE- left leg 01/03/15 Completed Triple arthrodesis- right foot 2014 Completed Ovarian mass- right 2014 Compl eted Triple arthrodesis- left foot 2008 Completed Bunionectomy- right Compl eted Vital Signs Most recent to oldest [Reference Range]: 1 Height 160.0 cm (09/08/23 10:21 AM) Patient Weight 108.6 kg (09/08/23 10:21 AM) Body Mass Index 42.42 kg/m2 (09/08/23 10:21 AM) Temperature [36.5-37.9 DegC] 36.2 DegC *LOW* (09/08/23 10:21 AM) Respiratory Rate 20 br/min (09/08/23 10:21 AM) Blood Pressure 124/86mmHg (09/08/23 10:21 AM) Cuff Pulse Pressure 38 mmHg (09/08/23 10:21 AM) Social History Social History Type Response Smoking Status Never smoked cigaret suzanne Sex Female Implantable Device List Procedure Provider Procedure Date Device Type Site Unknown Unknown 08/31/19 Unknown Unknown Device Identifier Serial Number Lot or Batch Number Manufacturing Date Expiration Date Distinct Identification Code MRI Safety Implantable Status Assigning Authority Unknown Unknown [id number] Unknown 12/19/20 Unknown Unknown Active Unkno wn Unknown Unknown na Unknown Unknown Unknown Unknown Active Unkn own Unknown Unknown na Unknown Unknown Unknown Unknown Active Unkn own Unknown Unknown na Unknown Unknown Unknown Unknown Active Unkn own Unknown Unknown na Unknown Unknown Unknown Unknown Active Unkn own Unknown Unknown na Unknown Unknown Unknown Unknown Active Unkn own Unknown Unknown na Unknown Unknown Unknown Unknown Active Unkn own Unknown Unknown na Unknown Unknown Unknown Unknown Active Unkn own Unknown Unknown na Unknown Unknown Unknown Unknown Active Unkn own Unknown Unknown na Unknown Unknown Unknown Unknown Active Unkn own Pre-OP H & P * GRETA Palomo Cory D: PERFORM, MODIFY, MODIFY Event Display: Pre-OP H & P Authored Date: [id number] PRE-OPERATIVE HISTORY AND PHYSICAL Name: DIETER DUMONT I Patient Number: [id number] : 1950 Date of Service: 09/08/2023 PRE-OP Diagnosis: Right knee DJD Planned Procedure: Right knee total knee arthroplasty Chief Complaint: Bilateral knee pain, right greater than left History of Present Illness (including history relevant to procedure): This 73-year-old female presents today with her , for her preoperative history and physical. [facility]. The patient has had a longstanding history of bilateral knee pain, right greater than left. She has tried viscosupplementation as well as activity modification without improvement. She is currently using a cane. Symptoms have become worse with time. They are worse with weightbearing and activity. They are affecting her ADLs. She denies any numbness or tingling. Preoperative imaging has been obtained. Review Of Systems: A total of 10 systems were reviewed and are significant for below stated conditions. Family history: Noncontributory. Social history: . Retired. Former nurse. No tobacco use, no EtOH use. Past Medical History: Problems: Bilateral primary osteoarthritis of knee Hypothyroid Hypertension Cataracts, bilateral Osteoarthritis Obesity Procedure History Procedure Procedure Date Comments Bunionectomy- right Unknown REPAIR ROTATOR CUFF ACUTE 03/20/2020 Cholecystectomy About 2016 Triple arthrodesis- right foot 2015 GASTROCNEMUS RELEASE- left leg 01/03/2015 Ovarian mass- right 2014 Triple arthrodesis- left foot 2008 Allergies and Sensitivities: Biaxin(GI issues) Avelox(Hypotension) Current Home Meds: (Last Updated 09/08 10:20) LORazepam (Ativan 0.5 mg oral tablet) 0.5 mg PO PRN: as needed for anxiety albuterol (Ventolin HFA 90 mcg/inh inhalation aerosol) 2 puff inhaled qid PRN: as needed for wheezing calcium-vitamin D (Calcium 600+D oral tablet) 1 tab PO qhs cetirizine (ZyrTEC 10 mg oral tablet) 10 mg PO Daily hydroCHLOROthiazide (hydroCHLOROthiazide 25 mg oral tablet) 25 mg PO Daily levothyroxine (Synthroid 50 mcg (0.05 mg) oral tablet) 50 mcg PO Daily lisinopril (lisinopril 10 mg oral tablet) 10 mg PO Daily 15mg daily multivitamin 1 tab PO Daily sodium hyaluronate (Euflexxa 10 mg/mL intra-articular solution) 20 mg intra- articular q7days bre knee euflexxa series traMADol (traMADol 50 mg oral tablet) 50 mg PO q4h PRN: as needed for pain trospium (trospium 20 mg oral tablet) 20 mg PO PRN Vitals: Last Updated 09/08/23 10:21 Weights: Last Updated 09/08/23 10:21 Date Temp Pulse BP RR SpO2 FIO2 Date Wt(kg) Wt(lb) 09/08 10: 36.2 124/86 20 97 09/08 10:21 108.6 239 09/08 10: 108.6 239 24 Hr Tmax: 36.2 at 09/08 10:21 Initial Wt: 09/08 108.6 kg 239 lb Physical Exam: (relevant to the procedure, including heart and lung evaluation) General: Well-developed, well-nourished, obese elderly female, in no acute distress. Sitting in a chair. Alert and oriented. Using her cane. HEENT: Normocephalic, atraumatic. Eyes PERRLA, EOMI. Nares patent without nasal drainage. Oral mucosa moist. Upper denture plate noted. Neck: No JVD Cardiac: RRR. No MGR. Peripheral pulses are 2+. Lungs: Clear to auscultation bilaterally. No crackles, rhonchi, or wheezing. Good air movement. Abdomen: Obese. Bowel sounds present x 4. Soft nontender. No organomegaly. No masses. Extremities: Right knee evaluation reveals valgus deformity. She has focal pain with palpation overthe medial and lateral joint lines. Crepitus is palpable with motion. She has full terminal extension. Flexion to around 95 degrees, limited by body habitus. Stable collateral ligaments. No palpable defect in the patellar tendon or quadriceps tendon. Ambulating today with an antalgic gait. Neuro: Gross sensation is intact across both lower extremities by soft touch. Skin: Warm and dry with good turgor. No rashes. Mild intra-articular effusion. Studies of radiology results (relevant to the procedure): Radiographic imaging previously obtained shows end-stage DJD of the right knee. Periarticular osteophytes, subchondral sclerosis, and joint space narrowing are all present. ASSESSMENT: Right knee end-stage DJD Plan: The patient and her were educated regarding today's findings. Approximately 25 minutes was spent with them reviewing operative procedure, postoperative recovery, physical therapy requirements, and medication use. Postoperative prescriptions for Percocet and Eliquis will be sent upon discharge from the hospital. Anticipate discharge to home with outpatient PT. She already has a walker and will bring this the day of surgery. She will attend PAT today for lab work, EKG, and chest x-ray. She is asymptomatic of any COVID-19 symptoms. PDMP was checked and there are no concerning findings. Postoperative follow-up appointment has been made with me for October 09. This dictation has been completed using [employer] text voice recognition software. Grammatical errors, omissions, insertions, and misspellings may be present due to the limitations of the software. Electronic Signature on File Electronically Reviewed/Signed by: Maximus Palomo PA-C Author Signature Dt/Tm:09/09/2023 04:46 PM Division of Sports Medicine Electronically Reviewed/Signed by: MD Angela Reilly Signature Dt/Tm: 09/09/2023 06:29 PM Rn Icu for Clinical Affairs, [facility] Sonya Professor in Orthopaedics Coil Placer, [facility] CDS Ortho Outpt Note * Tali Tom: PERFORM Event Display: Ortho Outpt Note Authored Date: [id number] Name:DIETER DUMONT I Patient Number:[id number] :1950 Date of Service:09/08/2023 CHIEF COMPLAINT: Right knee TKA Surgical Consent HPI: [id number] Scarlett presents today forsurgical consent for rightTKA. Patient reports she has bilateral knee pain but is proceeding with right TKA first, lschedued on 09/24/2023. She has a history of numerous foot surgeries with the most recent being in 08/2019. She is working with Tatiana Foster on her custom orthotics. PHYSICAL EXAM: Focus on the right lower extremity: Femoral and sciatic nerve function intact. Knee ROM: 0 to 120 IMPRESSION: Bilateral knee osteoarthritis PLAN: Reviewed surgical consent for right TKA discussed risks, benefits, alternatives, and recovery. Surgical consent signs. Follow-up as scheduled for surgery ATTESTATION: Tali Nunez, scribing for and in the presence of, Maxx Weiner, on this date,09/08/2023 10:29:16. Electronic Signature on File Electronically Reviewed/Signed by: Tali Tom Author Signature Dt/Tm:09/08/2023 10:44 AM Electronically Reviewed/Signed by: MD Angela Reilly Signature Dt/Tm: 09/08/2023 10:45 AM Rn Icu for Clinical Affairs, [facility] Jaden Professor in Orthopaedics Coil Placer, [facility] KR Patient Care team information Care Team Personnel Name: GRETA Dutton, Palmira Flanagan Position: Referring DIRECT Member Role: Primary Care Provider Address: Address: [address] [place], [place] [address] [place] [address] Care Team Related Persons Name: GÓMEZ DUMONT Address: home [address] [phone] Name: MARY GRACE GONZALES Address: home [address] [place], [place] [id number]
[2023-09-24] MEDS: TRANEXAMIC ACID 1,000 MG **IV Pre-op IV SCH (08:57)
[2023-09-24] MEDS ORDERED: PROPOFOL IV EMULSION 10 MG/ML 20 ML VIAL IV ONE ×2 (09:37→10:39)
[2023-09-24] MEDS ORDERED: ONDANSETRON INJ 2 MG/ML 2 ML VIAL ONE (09:37)
[2023-09-24] MEDS: ORTHO JOINT ANESTHETIC ONE (09:55)
[2023-09-24] MEDS ORDERED: PHENYLEPHRINE 100MCG/ML 10ML SYR IV ONE (09:56)
[2023-09-24] MEDS ORDERED: ePHEDrine sulfate 50 MG/5 ML SYR ONE (09:56)
[2023-09-24] MEDS: TRANEXAMIC ACID 1,000 MG **IV Intra-op IV SCH (10:22)
[2023-09-24] MEDS: ROPIVACAINE 0.5% HCL/PF 246 MG, Ketorolac (*for OR use only*) 30 MG, EPINEPHrine 30MG/3... INFIL SCH (10:45)
--- NOTE | 2023-09-24 10:52 | Post Operative Brief Note ---
Immediate Post Op Note v1 Date of Surgery September 24, 2023 Pre & Post Diagnosis Operation Date: 09/24/23 08:50 <No data on this case meets the specified criteria> Osteoarthritis right knee with varus deformity postop diagnosis same I identified the patient and participated in the time-out.: Yes Procedure Operation Date: 09/24/23 08:50 <No data on this case meets the specified criteria> Cemented right total knee replacement Surgeon Maxx Weiner MD Sales Producer MARITZA/Stacia Estimated Blood Loss 25 Findings Consistent with Post-Op Diagnosis Severe medial and patellofemoral disease Fluids See anesthesia record Complications None
--- NOTE | 2023-09-24 10:56 | Operative Report ---
Post Operative Report Pre & Post Diagnosis Operation Date: 09/24/23 08:50 <No data on this case meets the specified criteria> Severe osteoarthritis right knee with medial and patellofemoral disease preop diagnosis postop diagnosis same I identified the patient and participated in the time-out.: Yes Procedure Operation Date: 09/24/23 08:50 <No data on this case meets the specified criteria> Cemented right total knee replacement Surgeon Maxx Weiner MD Boot Repairer MARITZA/Stacia Estimated Blood Loss 25 Findings Consistent with Post-Op Diagnosis Severe patellofemoral and medial osteoarthritis Fluids See anesthesia report Specimens Bone pathology Drains None Complications None Indications Severe pain failed conservative management positive x-rays bilaterally right and left. Description of Procedure After the patient was appropriate notified site provide consent provide antibiotics confirmed as being given the right lower extremity was prepped and draped use routine fashion tourniquet plated to 275 mmHg after exsanguination of the limb with a rubber band for total of 49 minutes. Midline exposure was utilized parapatellar arthrotomy performed synovectomy completed osteophytes resected. Distal femur entered cruciates resected tibia subluxated menisci resected. Distal femur was resected 9 mm. Proximal tibia 4 mm. Extension gap was excellent. The femur was sized to a 5 narrow right appropriate cutting block applied anterior posterior condylar and chamfer cuts made in the flexion and extension gaps were noted to be excellent. The size 5 box cut was then made and the 5's the size 5 narrow right fit well. The tibia was broached and reamed to a size 4 rotating platform tray size 6 mm thick insert gave excellent range of motion excellent stability and full flexion full extension and midrange flexion. Patella was resected leaving about 13-1/2 mm and a [address] button was [address] into place it tracked well. The Ortho mix was then injected about the knee the trial implants were removed the knee was then irrigated with Betadine and Pulsavac and then the permanent cemented into position with tibia femur patella in that order a 12 minutes tourniquet deflated minor bleeding points controlled electrocautery at 14 minutes knee was flexed spacer trial of system removed there was no cement removal required wound was irrigated with Pulsavac Betadine and the permanent liner seated the knee reduced and closed at 40 degrees of flexion with #2 Vicryl 2-0 Vicryl and standstill clips appropriate dressing applied patient transferred recovery in satisfactory understanding tolerated the procedure well. Summary of implants size 5 narrow right size 4 rotating platform tray size 35 patella size 5 insert posterior cruciate substituting rotating platform 6 mm thick 2 bags of [place] G cement this is all of the attune [employer] rotating platform system. And this was a right total knee replacement I attest to the content of the Intraoperative Record and any orders documented therein. Any exceptions are noted below.
--- NOTE | 2023-09-24 10:59 | Discharge Summary ---
Date of Service September 25, 2023 Admission HPI Per Admitting Provider Severe right knee pain wishing total knee replacement failed conservative management Principal Diagnosis Osteoarthritis right knee Discharge Data Allergies Allergy/AdvReac Type Severity Reaction Status Date / Time moxifloxacin [From Avelox] Allergy Severe severe Verified 09/24/23 07:08 hypotension/syncope clarithromycin [From Biaxin] AdvReac Severe Gastrointestinal Verified 09/24/23 07:08 Upset rosuvastatin [From Crestor] AdvReac Intermediate myalgias Verified 09/24/23 07:08 Vaccinations None Consultations None Procedures Performed Operation Date: 09/24/23 08:50 Actual Procedures p Right Total Knee Arthroplasty(Right) - Maxx Weiner MD Ordered Studies 09/24/23 05:00 US - OR guided needle placemen Routine Hospital Course (1) Status post right knee replacement: Routine care plan for total knee replacement Plan Routine care plan for total knee replacement Total Time Total Time Spent Total Time Spent (In Minutes): 5 minutes Discharge Plan Discharge Items Patient Disposition: Home - Home Health Services Reason For Visit: Right Knee Degenerative Joint Disease Discharge Diagnosis: Right knee s/p total knee replacement Condition on Discharge: Good Activity: Per Instructions section Lifting: Gradually increase as tolerated Bathing: Keep incision dry Sexual Activity: Wait until after follow-up appointment Exercise/Sports: Wait until after follow-up appointment Driving/Machine Use: No driving until cleared by Dr. Weiner Weightbearing: Full weightbearing Non-emergency contact: Surgeon Call non-emergency contact if: you have any medication questions, your pain is not controlled, your temperature is above 101.5, your wound has increased redness, your wound has increased drainage and your wound pain has increased Follow-up/Referrals: Palmira Dutton PA-C [Primary Care Provider] - Diet: Heart Healthy Add Attending Provider Instructions: New Medicine: * You will likely be taking one or more of these medications: 1. Percocet - Take, as directed, when you need it, every four to six hours to control your pain. 2. Iron Sulfate - Take 1x each day for the month after surgery to help you replace the blood lost during surgery. 3. Eliquis - Thins your blood to lessen the chance of forming a blood clot. * The most common side effects of pain medicine and iron are nausea and constipation. If nausea or constipation is too much of a problem or if you have any questions about your new medicines or doses, call [facility] at . We will try to help you manage these issues. "VERY IMPORTANT TO READ AND REVIEW" Blood Clots and Blood Thinning Medicine: * You are given Eliquis during the immediate post-operative period to lessen the risk of blood clots forming in your legs and/or lungs. It is usually given for six weeks after surgery. Pain: * The immediate post-operative period after knee replacement surgery is often quite painful. * You are given a prescription for pain medicine. You should take it, as directed, when you need it, especially before physical therapy and before going to bed. Pain that interferes with sleep is very common and can last several months. * You will likely need pain medicine for the first four to six weeks. It will not stop all of the pain. The pain will lessen and as you feel better, you may change to milder pain medicine such as Tylenol. * The most common side effects of pain medicine are nausea and constipation, so don't take more than you need. Physical Therapy: * You will have physical therapy two or three times each week for four to six weeks after your surgery in order to regain your knee range of motion and to retrain your knee to work properly. * It is just as important to make sure you are getting your knee perfectly straight as it is to regain your knee bend. * Taking a pain pill an hour before therapy can help you have a more productive and comfortable therapy session if needed. Home Exercise: * You were shown a series of exercises (heel props, heel slides, etc.) in the hospital. Do these exercises three to four times each day including the exercises you were shown in physical therapy. Walking: * Get up and walk several times each day. For the first four weeks, try not to stand or walk for more than one hour at a time. If you do stand or walk for more than one hour, you will not hurt anything, but your knee and leg will likely swell. * As you feel comfortable, you may change from the walker or crutches to a cane and then to independent walking. SELF CARE INSTRUCTIONS AFTER TOTAL KNEE REPLACEMENT A. You may need to continue a physical therapy program after discharge from the hospital. There are several options available to you. Your doctor will assist you in selecting the best one for you. 1. An out-patient facility 2 to 3 times a week for therapy or home therapy. 2. Continue working on all exercises taught to you in the hospital. Your goals should be to increase bending of your knee to 90 degrees and beyond and to fully straighten your knee. B. You may progress at your own pace from walking with a walker or crutches to a cane; then to no assistive devices. C. Make walking a part of your daily routine. Be up as much as comfortable with rest periods throughout the day. Rest with leg elevation is very important. Use the ice wrap frequently for the first 3-4 weeks. D. There are no restrictions on activities. You may ride in a car, shop, participate in urology nurse and all social activities. E. Wear the long elastic stockings (MARIA DOLORES hose) 20 hours a day for six weeks after surgery. They can be removed several times a day for laundering and for a shower. F. Do not place a pillow behind your knee when resting. A pillow at your ankle is okay. VERY IMPORTANT TO READ AND REVIEW A. Take Eliquis (blood thinning medication) as directed by your doctor. B. There are a few signs you need to watch for after you are home. Call [facility] if you notice any of the followin. Increased severe knee pain. Some pain is expected especially when you exercise. 2. Increased swelling in your leg or knee; pain or swelling of the calf muscle in either lower leg. 3. Any fluid drainage from the incision. 4. Shortness of breath or chest pain. C. Please call [facility] at if you have any concerns or questions about your operation or recovery. The doctor or his nurse will return your call promptly. D. You must take antibiotics before dental work, bladder, bowel or other surgery. Call the office to obtain a prescription at least 2 days prior to your appointment. * CALL IF INCREASED PAIN, REDNESS, DRAINAGE OR FEVER GREATER THAT 101. * Sutures should be removed 12-14 days after surgery unless you are on chronic steroids, then it will be 14-18 days after surgery. Call your doctor if: * Temperature above 101 degrees F. * Pain not relieved by pain medicine ordered. * Increased drainage or redness from incision. * Notify your doctor with any questions or concerns. Pending Studies at Discharge: Yes Studies:: Bone pathology Stand-Alone Forms: [facility], Smoking Cessation Medications and DC Order Prescriptions: No Action cetirizine [Zyrtec] 10 mg Tablet 10 mg PO QAM ibuprofen 200 mg Capsule 600 mg PO QAM tramadol 50 mg Tablet 50 mg PO Q6H PRN (Reason: Pain) acetaminophen [Tylenol Arthritis] 650 mg Tablet Extended Release 650 mg PO Q12H PRN (Reason: Pain) lisinopril 10 mg Tablet 15 mg PO BID hydrochlorothiazide 25 mg Tablet 25 mg PO QAM lorazepam [Ativan] 1 mg Tablet 5 mg PO HS PRN (Reason: Restless Leg(S)) albuterol sulfate 90 mcg/actuation Hfa Aerosol Inhaler 1 inh INHALATION QID PRN (Reason: Wheezing) Centrum Silver Tablet 1 tab PO HS calcium carbonate-vitamin D3 [Calcium 600 + D(3)] 600 mg-10 mcg (400 unit) Tablet 1 tab PO HS melatonin 5 mg Tablet 5 mg PO HS PRN (Reason: Sleep) levothyroxine [Synthroid] 50 mcg Tablet 50 mcg PO QAM Admission Data Admit Date/Time: 09/24/23 11:14 Attending Provider: Maxx Weiner Admit Provider: Maxx Weiner Primary Care Provider: Palmira Dutton
--- NOTE | 2023-09-24 10:59 | Orthopedic Progress Note ---
Date of Service September 24, 2023 Orthopedic Progress Note Tolerated right right total knee replacement well. Denies chest pain shortness of breath fever chills nausea vomiting or headache. Vital signs are stable she is afebrile. Wound dressing clean dry and intact. X-rays pending. notified. X-rays will be done in recovery room. Start DVT prophylaxis tomorrow.
--- NOTE | 2023-09-24 11:07 | Operative Report ---
Post Operative Report Pre & Post Diagnosis Operation Date: 09/24/23 08:50 Pre-Op Diagnosis: Right Knee Degenerative Joint Disease Post-Op Diagnosis: Right Knee Degenerative Joint Disease I identified the patient and participated in the time-out.: Yes Procedure Operation Date: 09/24/23 08:50 Actual Procedures p Right Total Knee Arthroplasty(Right) - Maxx Weiner MD Surgeon RACHEL Weiner MD Senior Bookkeeper MARITZA/Stacia HERNANDES Estimated Blood Loss 25 Findings Consistent with Post-Op Diagnosis see operative report Specimens see operative report Drains none Complications none Disposition Accompanied Patient To Recovery: Yes Indications This 73 year old female presented to the office complaints of persisting right knee pain. She had tried conservative care measures without improvement. She elected to proceed with surgical intervention after being educated about potential risks and outcomes. Preoperative imaging was obtained. Description of Procedure The patient was administered a spinal anesthetic and taken to the operating room where she was given sedation. She was prepped and draped in the usual sterile fashion. Please see Dr. Weiner's operative report for specifics of the procedure. I was present for the entire case from initial patient positioning through final wound closure. Assistance was provided in tissue retraction, hemostasis, trial implant placement, final implant placement, and final wound closure. The patient was taken to the recovery room in satisfactory condition. I attest to the content of the Intraoperative Record and any orders documented therein. Any exceptions are noted below.
--- NOTE | 2023-09-24 11:28 | XRay Report ---
XR knee RT 1 or 2V routine CLINICAL HISTORY: S/P R TKA COMPARISON: Right knee radiographs January 27, 2023. FINDINGS: Alignment of the total right knee arthroplasty is anatomic. There is no periprosthetic fra cture or unexpected radiopaque foreign body. There are skin ubaldo. IMPRESSION: Expected findings following total right knee arthroplasty. ACT 112: Negative or not required by law. Electronically signed by: Yung Renee M.D. 09/24/2023 11:27 AM
--- NOTE | 2023-09-24 11:30 | Anesthesiology Progress Note ---
Date of Service September 24, 2023 Anesthesia Post Procedure Vital Signs Vital Signs: Temp Pulse Pulse Resp BP BP Pulse Ox 09/24/23 11:20 80 16 116/79 98 09/24/23 11:10 83 12 120/71 96 09/24/23 11:03 36.8 C 76 16 128/79 99 09/24/23 07:11 09/24/23 07:11 36.9 C 92 H 20 147/85 H 94 O2 Del Method O2 Flow Rate 09/24/23 11:20 Room Air 09/24/23 11:10 Room Air 09/24/23 11:03 Oxymask 5 09/24/23 07:11 Room Air 09/24/23 07:11 Room Air Pain Intensity Right Knee: Pain Intensity: 3 Notes Mental Status: alert / awake / arousable Patient Amnestic to Procedure: Yes Nausea / Vomiting: adequately controlled Pain: adequately controlled Airway Patency, RR, SpO2: stable & adequate BP & HR: stable & adequate Hydration State: stable & adequate Neuraxial Anesthesia: was administered and sensory block is resolving Anesthetic Complications: no major complications apparent
--- NOTE | 2023-09-24 11:36 | Operative Report ---
Post Operative Report Pre & Post Diagnosis Operation Date: 09/24/23 08:50 Pre-Op Diagnosis: Right Knee Degenerative Joint Disease Post-Op Diagnosis: Right Knee Degenerative Joint Disease I identified the patient and participated in the time-out.: Yes Procedure Operation Date: 09/24/23 08:50 Actual Procedures p Right Total Knee Arthroplasty(Right) - Maxx Weiner MD Surgeon Maxx Weiner MD Epic Professional MARITZA/Stacia REYNAGA-C Estimated Blood Loss 25 Findings Consistent with Post-Op Diagnosis Same as postoperative diagnosis Specimens The resected portions of femur and tibia. Description of Procedure Please see detailed operative note. I attest to the content of the Intraoperative Record and any orders documented therein. Any exceptions are noted below.
[2023-09-24] MEDS ORDERED: diphenhydrAMINE 50 MG/ML VIAL IV PRN (12:35)
[2023-09-24] MEDS ORDERED: bisacodyL 10 MG SUPP PR PRN (12:35)
[2023-09-24] MEDS ORDERED: ONDANSETRON INJ 2 MG/ML 2 ML VIAL IV PRN (12:35)
[2023-09-24] MEDS ORDERED: ALUMINUM/MAGNESIUM SUSP 30 ML UDC PO PRN (12:35)
[2023-09-24] MEDS ORDERED: ALBUTEROL HFA 8 GM INHALER INH PRN (12:35)
[2023-09-24] MEDS ORDERED: HYDROmorphone INJ 0.5 MG/0.5 ML SYR IV PRN (12:35)
[2023-09-24] MEDS ORDERED: METOCLOPRAMIDE HCL INJ 5 MG/ML 2 ML VIAL IV PRN (12:35)
[2023-09-24] MEDS ORDERED: MAGNESIUM HYDROXIDE SUSP 30 ML UDC PO PRN (12:35)
[2023-09-24] MEDS ORDERED: NALOXONE HCL 0.4 MG/1 ML VIAL/CARP IV PRN (12:35)
[2023-09-24] MEDS ORDERED: MELATONIN 3 MG TAB PO PRN (12:40)
[2023-09-24] MEDS: KETOROLAC TROMETHAMINE 15 MG/ML VIAL IV SCH (13:50)
[2023-09-24] MEDS: ACETAMINOPHEN 500 MG TAB PO SCH (13:50)
[2023-09-24] MEDS: SODIUM CHLORIDE 0.9% 1,000 ML IV SCH (13:50)
[2023-09-24] MEDS ORDERED: LORazepam 0.5 MG TAB PO PRN (14:52)
[2023-09-24] MEDS: ceFAZolin 2000MG 2,000 MG/15 ML SYR IV SCH (17:47)
[2023-09-24] MEDS: FERROUS GLUCONATE 324 MG TAB PO SCH (17:47)
[2023-09-24] MEDS: ASCORBIC ACID 500 MG TAB PO SCH (17:48)
[2023-09-24] MEDS: DOCUSATE SODIUM 100 MG CAP PO SCH (20:49)
[2023-09-24] MEDS: SENNA 8.6 MG TAB PO SCH (20:49)
[2023-09-24] MEDS: lisinopril 5 MG TAB PO SCH (20:49)
[2023-09-25] MEDS: LEVOTHYROXINE SODIUM 50 MCG TABLET PO SCH (05:32)
--- NOTE | 2023-09-25 07:05 | Orthopedic Progress Note ---
Date of Service September 25, 2023 Assessment & Plan Admission and Anticipated Discharge Date Admission Date: September 24, 2023 Orthopedic Progress Note Postop day #1 status post right total knee replacement.She denies chest pain shortness of breath fever chills nausea vomiting or headache. She is been up to the bathroom. Her pain is managed. Exam reveals neurovascular check femoral sciatic nerve to be normal can do a straight leg raise not as easy this morning as well as last night secondary to pain in the thigh as the block is wearing off. Emphasized the need for her to do her own exercises. Calves nontender neurovascular check femoral sciatic nerve is normal. Assessment doing well postop day 1 status post total knee replacement right dressing change later today this morning by PA and then discharge after PT OT. Begin Angelais today. Follow-up in 2 weeks for wound check and possible staple removal
[2023-09-25 07:29] LABS: Hematocrit (blood only) 34.3 % (37.0-47.0); Hemoglobin 11.3 g/dl (12.0-16.0); Mean Corpuscular Hemoglobin 30.1 pg (25.0-34.0); Mean Corpuscular Hgb Conc 32.9 g/dL (32.0-36.0); Mean Corpuscular Volume 91.5 fL (80.0-100.0); Mean Platelet Volume 9.8 fL (9.4-12.4); Platelet Count 309 K/uL (130-400); RDW Coefficient of Variation 12.4 % (11.5-14.5); RDW Standard Deviation 41.5 fL (36.4-46.3); Red Blood Count 3.75 M/uL (4.20-5.40); White Blood Count 11.16 K/ul (4.8-10.8)
[2023-09-25 07:48] LABS: BUN Creatinine Ratio 22.8 (10-20); Calcium 8.7 mg/dl (8.6-10.3); Est GFR (African American) 72.6 ml/min; Est GFR (Non-African American) 62.6 ml/min; Potassium 4.3 mmol/L (3.5-5.1)
[2023-09-25] MEDS: oxyCODONE HCL IR 5 MG TAB (IMMEDIATE RELEASE) PO PRN (08:04)
[2023-09-25] MEDS: dexAMETHasone 10 MG in SYRINGE 0 ML IV SCH (08:06)
[2023-09-25] MEDS: CETIRIZINE HCL 10 MG TABLET PO SCH (08:07)
[2023-09-25] MEDS: APIXABAN 2.5 MG TAB PO SCH (08:07)
[2023-09-25] MEDS: MULTIVITAMIN TAB PO SCH (08:07)
[2023-09-25] MEDS: hydroCHLOROthiazide 25 MG TAB PO SCH (08:10)
--- NOTE | 2023-09-25 09:36 | Orthopedic Progress Note ---
Date of Service September 25, 2023 Assessment & Plan (1) Status post right knee replacement: Plan: The patients dressing was removed by me and her Prevena wound VAC was placed. Instructions were given. Written discharge instructions were provided. Prescription for Percocet and Eliquis was sent to her pharmacy. She will have home health for the next 2 weeks. It has already been established by the office. Follow-up with me in a week for removal of the wound VAC. Follow-up in 2 weeks as scheduled for staple removal. Use the knee immobilizer when out of bed for the next 2 days. Discontinue entirely on Friday morning. Use her walker for ambulation and standing. Admission and Anticipated Discharge Date Admission Date: September 24, 2023 Subjective This 73-year-old female is seen this morning in her room. She is 1 day status post right total knee arthroplasty. The patient states she did well overnight. She did not sleep very well. She had pain throughout the night. She states she just received 2 tablets of oxycodone and a tablet of tylenol just prior to my arrival. She has already taken her Eliquis this morning. She feels ready for discharge. The patient denies any chest pain, shortness of breath, abdominal pain, nausea, vomiting, diarrhea, numbness, or tingling. She has been out of bed already this morning. No other complaints. Review of Systems Review of Systems: Unchanged from yesterday Physical Exam Physical Exam: General: Well-developed, well-nourished, early female, in no acute distress. Laying in bed. Alert and oriented. Conversive. Skin: Warm and dry with good turgor. No rashes. Postsurgical dressing is in place on the right leg. Upon removal, she has expected postoperative edema. No ecchymosis. No erythema. There is scant dry blood on the inner dressing. No active bleeding at this time. [place] are intact. Wound edges are well- approximated. Musculoskeletal: Right leg evaluation reveals intact motor function of the ankle and toes. She is able to set her quad and perform straight leg raise. She has full terminal extension. Flexion to 45 to 50 degrees without difficulty. Neurologic: Gross sensation is intact across the right leg by soft touch. Results & Data Vital Signs (Past 12 Hours) Vital Signs Temp Pulse Pulse Resp BP Pulse Ox O2 Del Method 09/25/23 07:17 36.7 C 80 16 152/73 H 94 Room Air 09/25/23 03:00 36.8 C 84 18 136/77 93 Room Air 09/24/23 23:17 36.8 C 77 18 145/80 H 95 Room Air Laboratory Results CBC obtained this morning shows a white count of 11.16. H&H of 11.3 and 34.3. Platelets 309,000. BMP shows sodium 139, potassium 4.3, chloride 10 anion gap of 5. BUN of 21 with creatinine 0.92. Glucose 118.
== END 2023-09-25 11:32 | disposition home health service (06) ==
LOC: 3N 06:48 → ASU 06:48

== ENCOUNTER 2024-05-05 05:15 | Observation (INO) ==
--- NOTE | 2024-04-29 09:01 | Anesthesiology Consultation ---
Date of Service April 29, 2024 Assessment & Plan Chart Review Chart Review: Acceptable Risk for Surgery and Patient NOT seen in Pre Admission Testing Consults Requested none ASA ASA3 Proposed Anesthesia Anesthesia Type: MAC Spinal Regional Regional Laterality: Left Site: Adductor Canal History Surgery Operation Date: 05/05/24 07:00 Proposed Procedures p Left Total Knee Arthroplasty - Maxx Weiner MD Height/Weight Height: 5 ft 3.5 in Weight: 108.862 kg Allergies Allergy/AdvReac Type Severity Reaction Status Date / Time moxifloxacin [From Avelox] Allergy Severe severe Verified 04/22/24 11:59 hypotension/syncope clarithromycin [From Biaxin] AdvReac Severe Gastrointestinal Verified 04/22/24 11:59 Upset rosuvastatin [From Crestor] AdvReac Intermediate myalgias Verified 04/22/24 11:59 Medications Home Medications Medication Instructions Recorded Confirmed Last Taken acetaminophen 650 mg 650 mg PO Q12H PRN Pain 09/01/23 04/22/24 09/23/23 08:00 tablet,extended release albuterol sulfate 90 mcg/actuation 1 inh inhalation QID PRN Wheezing 09/01/23 04/22/24 Unknown aerosol inhaler calcium carbonate 600 mg-vitamin 1 tab PO HS 09/01/23 04/22/24 09/23/23 22:00 D3 10 mcg (400 unit) tablet (Calcium 600 + D(3)) cetirizine 10 mg tablet (Zyrtec) 10 mg PO QAM 09/01/23 04/22/24 09/23/23 08:00 hydrochlorothiazide 25 mg tablet 25 mg PO QAM 09/01/23 04/22/24 09/23/23 08:00 ibuprofen 200 mg capsule 600 mg PO QAM 09/01/23 04/22/24 09/18/23 levothyroxine 50 mcg tablet 50 mcg PO QAM 09/01/23 04/22/24 09/24/23 04:00 (Synthroid) lisinopril 10 mg tablet 15 mg PO BID 09/01/23 04/22/24 09/23/23 22:00 melatonin 5 mg tablet 5 mg PO HS PRN Sleep 09/01/23 04/22/24 09/23/23 22:00 fznvmtmlihce-frlymjga-vbusoh tablet 1 tab PO HS 09/01/23 04/22/24 09/23/23 22:00 lorazepam 1 mg tablet (Ativan) 0.5 mg (1/2 x 1 mg) PO HS PRN 09/25/23 04/22/24 09/23/23 22:00 Restless Leg(S) #7 tabs Past Medical History Medical History History of diverticulitis 2020 Degenerative disc disease Hypothyroidism Restless legs Anxiety Neuropathy right foot s/p previous surgery Hyperlipidemia hx of > no meds Hypertension controlled, stable per pt History of COVID-06 Jul 2021 > not hospitalized Asthma well controlled, rare res inh use-last use several weeks ago morbid obesity Exercise / Class Metabolic Activity II 4-5 Yardwork/Stairs/Walk up hill Past Family History Family History Grandmother (Maternal) Diabetes Past Surgical History Surgical History Hx of total knee arthroplasty right TKA History of bunionectomy of right great toe Hx of foot surgery bilat feet and hardware removed from right foot with fusions in place History of repair of rotator cuff left History of colonoscopy January 2023 H/O ovarian cystectomy right History of cholecystectomy History of cataract surgery bilat [place] teeth extracted Past Anesthesia History No Hx of Anesthesia Complications and No Family Hx of Anesthesia Complications History of PONV No Hx of PONV and No Hx of Motion Sickness Social History Smoking Status: Never smoker Do You Dip or Chew Tobacco: No Hx Alcohol Use: Yes alcohol intake frequency: holidays/special occasions only Hx Substance Use: No substance use type: does not use Testing Electrocardiogram Date: 04/15/24 Findings: + NSR @ (@ 79;low voltage QRS;) and + NSST changes Chest X-Ray Date: 04/15/24 Findings: + NAD
[2024-05-05] MEDS: LR 15ML/HR IV SCH (05:58)
[2024-05-05] MEDS: LR 60ML/HR IV SCH (05:58)
[2024-05-05] MEDS ORDERED: ROPIVACAINE 0.5% 5 MG/ML 30 ML VIAL ONE (06:16)
--- NOTE | 2024-05-05 06:22 | History & Physical Bridge Note ---
Date of Service May 05, 2024 History & Physical Bridge Note I have examined the patient, reviewed the History & Physical and in the interval since the performance of the History & Physical I have noted the following changes of clinical significance:consent and site verified. no changes noted
[2024-05-05] MEDS ORDERED: fentaNYL citrate PF 100 MCG/2 ML VIAL IV PRN (06:42)
[2024-05-05] MEDS ORDERED: HYDROmorphone INJ 1 MG/ML SYRINGE IV PRN (06:42)
[2024-05-05] MEDS ORDERED: ATROPINE SULFATE 0.1 MG/ML 10ML SYR IV PRN (06:42)
[2024-05-05] MEDS ORDERED: ONDANSETRON INJ 2 MG/ML 2 ML VIAL ONE (06:42)
[2024-05-05] MEDS ORDERED: PROPOFOL IV EMULSION 10 MG/ML 20 ML VIAL IV ONE (06:42)
[2024-05-05] MEDS ORDERED: LIDOCAINE 2% 2 ML VIAL/AMP(20MG/ML) INFIL ONE (06:42)
[2024-05-05] MEDS ORDERED: MIDAZOLAM HCL 1 MG/ML 2ML VIAL ONE ×2 (06:42→06:43)
[2024-05-05] MEDS ORDERED: ePHEDrine sulfate 50 MG/ML AMP IV PRN (06:42)
[2024-05-05] MEDS ORDERED: ONDANSETRON INJ 2 MG/ML 2 ML VIAL IV PRN (06:42)
[2024-05-05] MEDS: TRANEXAMIC ACID 1,000 MG **IV Pre-op IV SCH (06:46)
[2024-05-05] MEDS: ceFAZolin 3000MG 3,000 MG/72.5 ML BAG IV SCH (07:00)
[2024-05-05] MEDS ORDERED: KETAMINE HCL 10MG/ML SYR ONE ×2 (07:04→09:27)
[2024-05-05] MEDS: ORTHO JOINT ANESTHETIC ONE (07:31)
[2024-05-05] MEDS: TRANEXAMIC ACID 1,000 MG **IV Intra-op IV SCH (08:04)
[2024-05-05] MEDS: ROPIV 0.5% 246mg, Ketorolac 30mg, EPINEPHrine 0.5mg in NSS INFIL SCH (08:15)
--- NOTE | 2024-05-05 08:38 | Post Operative Brief Note ---
Immediate Post Op Note Date of Surgery May 05, 2024 Pre & Post Diagnosis Operation Date: 05/05/24 07:00 <No data on this case meets the specified criteria> Osteoarthritis with varus deformity left knee pre and postop diagnosis same I identified the patient and participated in the time-out.: Yes Procedure Operation Date: 05/05/24 07:00 <No data on this case meets the specified criteria> Cemented left total knee replacement Surgeon Maxx Weiner MD Bus Mechanic Carlos/Stacia Estimated Blood Loss 25 Findings Consistent with Post-Op Diagnosis Severe medial and patellofemoral disease varus alignment Fluids See anesthesia report Complications None
--- NOTE | 2024-05-05 08:42 | Operative Report ---
Post Operative Report Pre & Post Diagnosis Operation Date: 05/05/24 07:00 <No data on this case meets the specified criteria> Osteoarthritis left knee with varus deformity I identified the patient and participated in the time-out.: Yes Procedure Operation Date: 05/05/24 07:00 <No data on this case meets the specified criteria> Cemented left total knee replacement Surgeon Maxx Weiner MD Cash Posting Representative Carlos/Stacia Estimated Blood Loss 25 Findings Consistent with Post-Op Diagnosis Severe medial and patellofemoral disease Fluids See anesthesia report Specimens Bone pathology Drains None Complications None Indications Severe pain failed conservative management over time Description of Procedure After the patient was appropriate notified site verified consent verified antibiotics confirmed to be given the left lower extremity was prepped and draped use routine fashion. Leg was then exsanguinated over with a rubber Esmarch bandage and the tourniquet inflated to 275 mmHg for total of 56 minutes. Midline exposure utilized parapatellar arthrotomy performed synovectomy and osteophytes resected and excised. Distal femur then entered cruciates resected tibia subluxated menisci resected. Distal femur resected 9 mm proximal tibia 4 mm the extension gap was excellent. Distal femur was sized to a 5 appropriate cutting block applied anterior posterior condylar and chamfer cuts made. The flexion gap and extension gap were then checked and a size 8 was excellent. The box cut was then made a size 5 trial fit well the lug hole seats were made. The proximal tibia was then broached and reamed for a size 4 tray size 8 spacer was excellent. The patella was then resected leaving roughly 13 mm and a 35 button seating holes made and it the trial seated and tracked well. Ortho mix was then injected all about the knee the knee was then irrigated with Pulsavac and Betadine soak for 2-1/2 minutes prior to evacuating all the fluid and then pe rmanent implants were cemented into position. Tibia femur and patella in that order at 12 minutes of tourniquet deflated at 14 minutes knee was flexed there was no cement removal required wound was irrigated 1 final time with Pulsavac Betadine and the permanent liner seated the knee reduced and closed at 40 degrees of flexion with #2 Vicryl 2-0 Vicryl and standstill clips appropriate dressing applied the patient transferred recovery in satisfactory descending tolerated the procedure well. contacted. DVT prophylaxis per protocol. EBL was 25 cc. Crystalloid per anesthesia. Summary of implants size 5 narrow left femur size 4 rotating tray size 35 patella size 5 x 8 rotating platform posterior cruciate stabilized insert 2 bags of Pal[place]os G cement ATT UNE DePuy Synthes total knee system. I attest to the content of the Intraoperative Record and any orders documented therein. Any exceptions are noted below.
--- NOTE | 2024-05-05 08:44 | Orthopedic Progress Note ---
Date of Service May 05, 2024 Orthopedic Progress Note Tolerated left total knee replacement well. Denies chest pain shortness of breath fever chills nausea vomiting or headache. Vital signs are stable she is afebrile. Wound dressing clean dry and intact neurovascular check limited by spinal. X- rays pending. Family contacted. Continue care plan for total knee replacement DVT prophylaxis to start tomorrow.
--- NOTE | 2024-05-05 08:44 | Discharge Summary ---
Date of Service May 06, 2024 Admission HPI Per Admitting Provider Osteoarthritis left knee with varus deformity Principal Diagnosis Osteoarthritis left knee with varus deformity Discharge Data Allergies Allergy/AdvReac Type Severity Reaction Status Date / Time moxifloxacin [From Avelox] Allergy Severe severe Verified 05/05/24 05:37 hypotension/syncope clarithromycin [From Biaxin] AdvReac Severe Gastrointestinal Verified 05/05/24 05:37 Upset rosuvastatin [From Crestor] AdvReac Intermediate myalgias Verified 05/05/24 05:37 Vaccinations None Consultations None Procedures Performed Operation Date: 05/05/24 07:00 <No data on this case meets the specified criteria> Cemented left total knee replacement Ordered Studies 04/29/24 09:01 US - OR guided needle placemen Stat 05/05/24 05:00 US - OR guided needle placemen Stat Hospital Course (1) Status post left knee replacement: Care plan for total knee replacement Total Time Total Time Spent Total Time Spent (In Minutes): 5 Discharge Plan Discharge Items Reason For Visit: Left Knee Degenerative Joint Disease Discharge Diagnosis: Same Condition on Discharge: Good Activity: Per Instructions section Lifting: No more than 5 pounds Bathing: Keep incision dry Sexual Activity: Wait until after follow-up appointment Exercise/Sports: Wait until after follow-up appointment Call non-emergency contact if: your temperature is above 101.5, your wound has increased redness, your wound has increased drainage and your wound pain has increased Follow-up/Referrals: Palmira Dutton PA-C [Primary Care Provider] - Addtl Attending Provider Instructions: DIET: * Resume previous diet. MEDICATIONS: * Please take your prescriptions as instructed at your pre-op appointment and/or see medication discharge instructions listed above. * If concerns develop, call your physician's office at . SPECIAL CARE INSTRUCTIONS: * Ice/Elevate as instructed. * Keep dressing clean, dry, intact. * Your surgical extremity may be discolored due to prepping agents used on the skin. A bluish-green tint is a normal variant and should not cause alarm. Call your doctor at [phone] if: * Temperature above 101 degrees * Pain not relieved by pain medicine ordered * There is increased drainage or redness from any incision * You have any unanswered questions, problems or concerns. FOLLOW UP VISIT: * If not already scheduled, please call the office at to schedule a follow-up appointment. Pending Studies at Discharge: Yes (Bone pathology) Stand-Alone Forms: My [facility] Medications and DC Order Prescriptions: No Action cetirizine [Zyrtec] 10 mg Tablet 10 mg PO QAM ibuprofen 200 mg Capsule 600 mg PO QAM Hold Instructions: Resume on 10/25/23. acetaminophen 650 mg Tablet Extended Release 650 mg PO Q12H PRN (Reason: Pain) lisinopril 10 mg Tablet 15 mg PO BID hydrochlorothiazide 25 mg Tablet 25 mg PO QAM albuterol sulfate 90 mcg/actuation Hfa Aerosol Inhaler 1 inh INHALATION QID PRN (Reason: Wheezing) [id number] Tablet 1 tab PO HS calcium carbonate-vitamin D3 [Calcium 600 + D(3)] 600 mg-10 mcg (400 unit) Tablet 1 tab PO HS melatonin 5 mg Tablet 5 mg PO HS PRN (Reason: Sleep) levothyroxine [Synthroid] 50 mcg Tablet 50 mcg PO QAM lorazepam [Ativan] 1 mg Tablet 0.5 mg PO HS PRN (Reason: Restless Leg(S)) Qty: 7 0RF Admission Data Admit Date/Time: 05/05/24 08:59 Attending Provider: Maxx Weiner Admit Provider: Maxx Weiner Primary Care Provider: Palmira Dutton Other Providers: [facility],Home Healthcare
--- NOTE | 2024-05-05 08:49 | Operative Report ---
Post Operative Report Pre & Post Diagnosis Operation Date: 05/05/24 07:00 Pre-Op Diagnosis: Left Knee Degenerative Joint Disease Post-Op Diagnosis: Left Knee Degenerative Joint Disease I identified the patient and participated in the time-out.: Yes Procedure Operation Date: 05/05/24 07:00 Actual Procedures p Left Total Knee Arthroplasty(Left) - Maxx Weiner MD Surgeon Maxx Weiner MD Felled Seam Operator Chainstitch Carlos/Stacia Estimated Blood Loss 25 Findings Consistent with Post-Op Diagnosis Specimens Bone pathology Description of Procedure Patient was brought to the operative suite after undergoing spinal anesthesia, she was placed under sedation. Positioned supine. All bony prominences were well-padded. Left lower extremities prepped and draped in usual sterile fashion. A surgical timeout was performed. Patient underwent a left total knee arthroplasty, please see Dr. Weiner's operative report for full details. I was present and assisted with limb positioning, soft tissue retraction, bony resection, hardware implantation, wound closure, postoperative dressing placement. Patient was awakened and taken to the recovery room in stable condition. I attest to the content of the Intraoperative Record and any orders documented therein. Any exceptions are noted below.
--- NOTE | 2024-05-05 08:51 | Operative Report ---
Post Operative Report Pre & Post Diagnosis Operation Date: 05/05/24 07:00 Pre-Op Diagnosis: Left Knee Degenerative Joint Disease Post-Op Diagnosis: Left Knee Degenerative Joint Disease I identified the patient and participated in the time-out.: Yes Procedure Operation Date: 05/05/24 07:00 Actual Procedures p Left Total Knee Arthroplasty(Left) - Maxx Weiner MD Surgeon RACHEL Weiner MD Access Services Assistant Carlos/Stacia HERNANDES Estimated Blood Loss 25 Findings Consistent with Post-Op Diagnosis see operative report Specimens see operative report Drains none Complications none Disposition Accompanied Patient To Recovery: Yes Indications This 74 year old female presented to the office with complaints of persisting left knee pain. She had tried conservative care measures without improvement. She elected to proceed with surgical intervention after being educated about potential risks and outcomes. Preoperative imaging was obtained. Description of Procedure The patient was administered a spinal anesthetic and then taken to the operating room where she was given sedation. She was prepped and draped in the usual sterile fashion. Please see Dr. Weiner's operative report for specifics of the procedure. I was present for the entire case from initial patient positioning through final wound closure. Assistance was provided in tissue retraction, hemostasis, trial implant placement, final implant placement, and final wound closure. The patient was taken to the recovery room in satisfactory condition. I attest to the content of the Intraoperative Record and any orders documented therein. Any exceptions are noted below.
--- NOTE | 2024-05-05 09:22 | XRay Report ---
XR knee LT 1 or 2V routine CLINICAL HISTORY: S/P L TKA COMPARISON: Left knee radiographs November 10, 2023. FINDINGS: Alignment of the total left knee arthroplasty is anatomic. There is no periprosthetic frac ture or unexpected radiopaque foreign body. There are skin ubaldo. IMPRESSION: Expected findings following total left knee arthroplasty. ACT 112: Negative or not required by law. Electronically signed by: Yung Renee M.D. 05/05/2024 9:20 AM
--- NOTE | 2024-05-05 09:52 | Anesthesiology Progress Note ---
Date of Service May 05, 2024 Anesthesia Post Procedure Vital Signs Vital Signs: Temp Pulse Pulse Resp BP Pulse Ox O2 Del Method 05/05/24 09:40 70 18 119/65 93 Room Air 05/05/24 09:25 36.5 C 64 18 126/66 96 Room Air 05/05/24 09:15 72 18 123/48 L 97 Room Air 05/05/24 09:05 71 15 117/58 L 100 Room Air 05/05/24 08:55 75 16 104/71 98 Room Air 05/05/24 08:48 36.6 C 74 19 109/65 100 Oxymask 05/05/24 05:41 36.9 C 80 18 124/99 96 Room Air O2 Flow Rate 05/05/24 09:40 05/05/24 09:25 05/05/24 09:15 05/05/24 09:05 05/05/24 08:55 05/05/24 08:48 4 05/05/24 05:41 Transfer of Care Handoff Completed per policy Notes Mental Status: alert / awake / arousable and participated in evaluation Patient Amnestic to Procedure: Yes Nausea / Vomiting: adequately controlled Pain: adequately controlled Airway Patency, RR, SpO2: stable & adequate BP & HR: stable & adequate Hydration State: stable & adequate Neuraxial Anesthesia: was administered and sensory block is resolving Anesthetic Complications: no major complications apparent and Pt Satisfied with anesthetic care
[2024-05-05] MEDS ORDERED: ALUMINUM/MAGNESIUM SUSP 30 ML UDC PO PRN (10:06)
[2024-05-05] MEDS ORDERED: diphenhydrAMINE 50 MG/ML VIAL IV PRN (10:06)
[2024-05-05] MEDS ORDERED: MAGNESIUM HYDROXIDE SUSP 30 ML UDC PO PRN (10:06)
[2024-05-05] MEDS ORDERED: bisacodyL 10 MG SUPP PR PRN (10:06)
[2024-05-05] MEDS ORDERED: VANCOMYCIN CONSULT ACTIVE PRN (10:06)
[2024-05-05] MEDS ORDERED: ALBUTEROL HFA 8 GM INHALER INH PRN (10:06)
[2024-05-05] MEDS ORDERED: NALOXONE HCL 0.4 MG/1 ML VIAL/CARP IV PRN (10:06)
[2024-05-05] MEDS ORDERED: HYDROmorphone INJ 0.5 MG/0.5 ML SYR IV PRN (10:06)
[2024-05-05] MEDS ORDERED: METOCLOPRAMIDE HCL INJ 5 MG/ML 2 ML VIAL IV PRN (10:06)
[2024-05-05] MEDS ORDERED: LORazepam 0.5 MG TAB PO PRN (10:06)
[2024-05-05] MEDS ORDERED: MELATONIN 3 MG TAB PO PRN (10:26)
[2024-05-05] MEDS ORDERED: ACETAMINOPHEN 325 MG TAB PO PRN (10:26)
--- OUTSIDE RECORDS SUMMARY | 2024-05-05 11:07 | External Medical Summary | Summary of Care ---
Author Name Unknown Organization [facility] Address [address] [place] [address] Phone [phone] Care Team Providers Care Building Official Name Role Phone Palmira Dutton PA-C Primary Care Provider Encounter Details Date Type Department Care Team (Latest Contact Info) Description 05/03/2024 12:57 PM EDT Hospital Encounter Radiology, [facility] [address] [place] [address] Arrived Discharge Disposition: Home - Self Care Allergies Active Allergy Reactions Criticality Noted Date Comments Moxifloxacin Hcl In Nacl 09/07/2008 BP dropped dramatically Quinolones 09/07/2008 Pt states she is allergic to avelox-unsure which one-but BP dropped dramatically Clarithromycin 06/15/2018 Severe diarrhea Cat Dander 06/15/2018 Rosuvastatin Muscle pain 04/16/2021 documented as of this encounter (statuses as of 05/04/2024) Medications Medication Sig Dispensed Refills Start Date End Date Status IBUPROFEN 600 MG PO TABS Take by mouth daily. Active Multiple Vitamins-Minerals (THERAPEUTIC MULTIVIT/MINERAL) TABS Take 1 Tab by mouth. Active acetaminophen (TYLENOL) 500 MG Tablet Take 2 Tablets by mouth daily as needed. Active Calcium Carbonate-Vitamin D 600-400 MG-UNIT per tablet Take 1 Tablet by mouth. Active albuterol HFA (PROVENTIL HFA) 108 (90 BASE) MCG/ACT inhaler Inhale 1 Puff by mouth every 6 hours as needed for Wheezing. 1 Inhaler 3 03/31/2019 Active Cetirizine HCl 10 MG Oral Capsule Active Trospium Chloride 20 MG Oral Tablet (Sanctura)Indications :Overactive bladder Take 1 Tablet by mouth in the morning and 1 Tablet before bedtime. 60 Tablet 5 03/20/2023 Active Naproxen Sodium 220 MG Oral Capsule (Aleve) Take 1 Capsule by mouth 2 times a day with morning and evening meals. Active traMADol HCl 50 MG Oral Tablet (Ultram)Indications:B ilateral primary osteoarthritis of knee Take 1 Tablet by mouth every 6 hours as needed for Pain, Severe. 30 Tablet 11/20/2023 Active LORazepam 0.5 MG Oral Tablet (Ativan) Take 1 Tablet by mouth daily as needed for Anxiety. 30 Tablet 5 12/03/2023 Active Levothyroxine Sodium 50 MCG Oral Tablet (Levoxyl) take 1 tablet by mouth every day first thing in the morning at least 30 minutes prioir to breakfast or other meds 90 Tablet 1 02/08/2024 Active Lisinopril 10 MG Oral Tablet (Prinivil)Indications :Essential hypertension with goal blood pressure less than 140/90 take 1&1/2 tablets by mouth twice daily 270 Tablet 2 04/01/2024 Active hydroCHLOROthiazide 25 MG Oral Tablet (Hydrodiuril)Indicati ons:Essential hypertension with goal blood pressure less than 140/90 TAKE ONE TABLET BY MOUTH EVERY MORNING 90 Tablet 2 04/01/2024 Active documented as of this encounter (statuses as of 05/04/2024) Active Problems Problem Noted Date Diagnosed Date Prediabetes 11/24/2023 Overview: Per Prediabetes protocol Status post right knee replacement 11/20/2023 Bilateral primary osteoarthritis of knee 022 Body [...] as of this encounter (statuses as of 05/04/2024) Resolved Problems Problem Noted Date Diagnosed Date Resolved Date Right knee DJD 01/27/2023 11/20/2023 Hx of stress fx 11/05/2011 01/05/2019 documented as of this encounter (statuses as of 05/04/2024) Immunizations Name Administration Dates Next Due PPD 03/10/2018 documented as of this encounter Social History Tobacco Use Types Packs/Day Years Used Date Smoking Tobacco: Never Smokeless Tobacco: Never Alcohol Use Standard Drinks/Week Comments Not Currently 0 (1 standard drink = 0.6 oz pur e alcohol) social PHQ-2 Answer Date Recorded PHQ Adult Total Score 1 04/26/2024 Hunger Vital Sign Answer Date Recorded Within the past 12 months, y ou worried that your food would run out before you got the money to buy more. Never true 09/15/19 24 Within the past 12 months, t he food you bought just didn't last and you didn't have money to get more. Never true 09/15/2023 Childcare Answer Date Recorded Do you feel overwhelmed with taking care of a child, family member or friend? No 09/15/2023 Does your family need help f inding childcare? (Household - for ages 0-17 years) Not on file 09/15/2023 Clothing Answer Date Recorded Have you been unable to get clothing when it was really needed? No 09/15/2023 Is your family able to get c lothes or diapers when needed? (Household - for ages 0-17 years) Not on file 09/15/2023 Personal Safety Answer Date Recorded Do you feel unsafe or have concerns for your saf ety? No 09/15/2023 Do you have concerns for you r family's safety? (Household - for ages 0-17 years) Not on file 09/15/2023 Utilities Answer Date Recorded Do you have trouble paying y our heating, water, or electric bill? No 09/15/2023 Is your family able to pay t he heat, water, or electric bill? (Household - for ages 0-17 years) Not on file 09/15/2023 Does your family have access to good internet? (Household - for ages 0-17 years) Not on file 09/15/2023 Employment Status Answer Date Recorded Are you unemployed or without regular income? No 09/15/2023 Does the household have a re gular source of income? (Household - for ages 0-17 years) Not on file 09/15/2023 Social Connections Answer Date Recorded How often do you feel lonely or isolated from th ose around you? Never 09/15/2023 Financial Resource Strain Answer Date R ecorded Do you have any trouble payi ng for your medications, or do you think you might in the future? No 09/15/2023 Does your family have troubl e paying for medicine? (Household - for ages 0-17 years) Not on file 09/15/2023 Transportation Needs Answer Date Record ed READ ONLY Do you have troubl e getting a ride to medical visits or work? Never True 09/15/2023 Does your family have a hard time getting a ride to doctors visits? (Household - for ages 0-17 years) Not on file 09/15/2023 Has lack of transportation k ept you from medical appointments, meetings, work, or from getting things needed for daily living? Check all that apply. (Adult - for ages 18 years and over) Not on file 09/15/2023 Do you (or your family) have trouble finding or paying for a ride (transportation)? (Household - for ages 0-17 years) Not on file 09/15/2023 Housing Stability Answer Date Recorded Do you currently live in a s helter or have no steady place to sleep at night? No 09/15/2023 READ ONLY Do you think you a re at risk of becoming homeless? No 09/15/2023 Does your family worry about paying for your home or becoming homeless? (Household - for ages 0-17 years) Not on file 0 09/15/2023 Are you homeless or worried that you might be in the future? (Adult - for ages 18 years and over) Not on file Are you (or your family) collins eless or worried that you might be in the future? (Household - for ages 0-17 years) Not on file Food Insecurity Answer Date Recorded Do you need food for this week? No 09/15/2023 Are you able to get enough f ood for your family? (Household - for ages 0-17 years) Not on file 09/15/2023 Does your family need food t his week? (Household - for ages 0-17 years) Not on file 09/15/2023 Do you always have enough fo od for your family? (Household - for ages 0-17 years) Not on file 09/15/2023 Sex and Gender Information Value Date Recorded [...] Care Team (Late st Contact Info) Description 12/06/2024 5:20 PM EDT Office Visit Family Practice, [facility] [address] [place] [address] Palmira Dutton PA-C [address], [place] [id number] Pending Results Name Type Priority Associated Diagnoses Date /Time DEXA SCAN/BONE MINERAL AXIAL Medical Imaging Routine Postmenopausal status, age-related 05/03/2024 1:17 PM EDT Scheduled Orders Name Type Priority Associated Diagnoses Orde r Schedule DEXA SCAN/BONE MINERAL AXIAL Medical Imaging Routine Postmenopausal status, age-related 1 Occurrences starting 05/03/2024 until 05/03/2024 Health Maintenance Due Date Last Done Comments Pneumococcal Vaccine: 65+ Years (1 of 2 - PCV) 01/27/1956 DTap/Tdap Vaccines (1 - Tdap) 01/27/1971 Cologuard 01/27/1997 Fecal Occult Blood Test 01/27/1997 Sigmoidoscopy 01/27/1997 Zoster Vaccines (1 of 2) 01/27/2002 DXA Scan 04/30/2023 04/30/2016 Adult Wellness Visit 09/04/2023 09/04/2022, 08/23/19 22 Colonoscopy 01/25/2024 01/24/2023, 05/15/2012 Colorectal Cancer Screening 01/25/2024 COVID-19 Vaccine (1 - season) 2024 Influenza Vaccine (FLU shot) (#1) 2024 Mammogram 04/28/2024 04/28/2023, 0 01/2022, 07/02/2021, Additional history exists GFR 04/22/2025 04/22/2024, 03/19, 11/17/2023, Additional history exists HbA1c 04/22/2025 04/22/2024, 11/17/2023 TSH 04/22/2025 04/22/2024, 0 08/2023, 04/04/2023, Additional history exists Depression Screening 04/26/2025 04/26/2024 Albumin/Creatinine Ratio 11/16/2026 11/17/2023 Lipid Panel 04/22/2029 04/22/2024, 0 08/2023, 04/04/2023, Additional history exists RETIRED - COLONOSCOPY-ANNUAL AGES 18-100 Discontinued 01/24/2023, 05/15/2012 HPV (Gardasil) Vaccine Aged Out No lo nger eligible based on patient's age to complete this topic Hepatitis B Vaccine Aged Out No longe r eligible based on patient's age to complete this topic MENINGOCOCCAL (MENACTRA/MENVEO) Aged Out No longer eligible based on patient's age to complete this topic documented as of this encounter Medical Devices Implanted Type Area Trim Mechanic Device Identifier Shelf Expiration Date Model / Serial / Lot Iliac Crest F/D 9mm [id number] - [id number] Implanted:Qty: 1 on 12/01/2008 at OR [facility] Tissue - Human Left: Foot MUSCULOSKELETAL TRANSPLANT FND 10/13/2010 [id number] / [id number] / Graft Chamber Small [id number] - [id number] Implanted:Qty: 1 on 12/01/2008 at OR [facility] Tissue - Human Left: Foot [employer] [id number] / [id number] / Screw Cannul 7.3mm 208.875 - [id number] Implanted:Qty: 1 on 12/01/2008 at OR [facility] Left: Foot SYNTHES 208.875 / / Screw Cannul 4.5mm 214.536 - [id number] Implanted:Qty: 1 on 12/01/2008 at OR [facility] Left: Foot SYNTHES 214.536 / / Screw Cannul 4.5mm 214.538 - [id number] Implanted:Qty: 1 on 12/01/2008 at OR [facility] Left: Foot SYNTHES 214.538 / / Screw Cannul 4.5mm 214.550 - [id number] Implanted:Qty: 1 on 12/01/2008 at OR [facility] Left: Foot SYNTHES 214.550 / / Staple Compr 15x15 [id number] - [id number] Implanted:Qty: 1 on 12/01/2008 at OR [facility] Left: Foot [employer] [id number] / / [place] Suture Biocomposite - [id number] Implanted:Qty: 1 on 03/20/2020 by Isaías Day MD at OR [facility] Left: Shoulder [employer] 12/16/2023 [id number] / / [id number] documented as of this encounter Visit Diagnoses Diagnosis Postmenopausal status, age-related Asymptomatic postmenopausal status (age-related) (natural) documented in this encounter Advance Directives * Full Code (Latest Code Status on File) Date Activated Date Inactivated Comments 03/20/2020 11:50 AM 03/20/2020 5:36 PM This order re flects the patients wishes and were consensually agreed upon. * Full Code Date Activated Date Inactivated Comments 12/01/2008 3:53 PM 12/02/2008 2:42 PM Care Teams Building Official Relationship Specialty Start Date End Date Palmira Dutton PA-C [address] [place] [id number] PCP - General Physician Database Administrator 11/07/18 documented as of this encounter
--- OUTSIDE RECORDS SUMMARY | 2024-05-05 11:07 | External Medical Summary | Summary of Care ---
Author Name Unknown Organization [facility] Address [address] [place] [address] Phone [phone] Care Team Providers Care School Director Name Role Phone Palmira Dutton PA-C Primary Care Provider Encounter Details Date Type Department Care Team (Latest Contact Info) Description 05/03/2024 12:58 PM EDT - 05/03/2024 11:59 PM EDT Hospital Encounter Radiology, [facility] [address] [place] [address] Arrived Discharge Disposition: Home - [...] 12/06/2024 5:20 PM EDT [facility] [address] [place] [address] Palmira Dutton PA-C [address] [place] [phone] Pending Results Name Type Priority Associated Diagnoses Date /Time MAMMOGRAM SCREENING KENDALL BILATERAL Medical Imaging Routine Encounter for screening mammogram for breast cancer 05/03/2024 1:54 PM EDT Scheduled Orders Name Type Priority Associated Diagnoses Orde r Schedule MAMMOGRAM SCREENING KENDALL BILATERAL Medical Imaging Routine Encounter for screening mammogram for breast cancer 1 Occurrences starting 05/03/2024 until 05/03/2024 Health [...] this encounter Medical Devices Implanted Type Area Child Care Assistant Device Identifier Shelf Expiration Date Model / Serial / Lot Iliac Crest F/D 9mm [id number] - [id number] Implanted:Qty: 1 on 12/01/2008 at OR [facility] Tissue - Human Left: Foot MUSCULOSKELETAL TRANSPLANT FND 10/13/2010 [id number] / [id number] / Graft Chamber Small [id number] - [id number] Implanted:Qty: 1 on 12/01/2008 at OR [facility] Tissue - Human Left: Foot [employer] [id number] / [id number] / Screw Cannul 7.3mm 208.875 - [id number] Implanted:Qty: 1 on 12/01/2008 at OR [facility] Left: Foot SYNTHES 208.875 / / Screw Cannul 4.5mm 214.536 - [id number] Implanted:Qty: 1 on 12/01/2008 at OR [facility] Left: Foot SY[employer]ES 214.536 / / Screw Cannul 4.5mm 214.538 - [id number] Implanted:Qty: 1 on 12/01/2008 at OR [facility] Left: Foot [employer]ES 214.538 / / Screw Cannul 4.5mm 214.550 - [id number] Implanted:Qty: 1 on 12/01/2008 at OR [facility] Left: Foot SYNTHES 214.550 / / Staple Compr 15x15 [id number] - [id number] Implanted:Qty: 1 on 12/01/2008 at OR [facility] Left: Foot [employer] [id number] / / [place] Suture Biocomposite - [id number] Implanted:Qty: 1 on 03/20/2020 by Isaías Day MD at OR [facility] Left: Shoulder [employer] 12/16/2023 [id number] / / [id number] documented as of this encounter Visit Diagnoses Diagnosis Encounter for screening mammogram for breast cancer documented in this encounter Advance Directives * Full Code (Latest Code Status on File) Date Activated Date Inactivated Comments 03/20/2020 11:50 AM 03/20/2020 5:36 PM This order re flects the patients wishes and were consensually agreed upon. * Full Code Date Activated Date Inactivated Comments 12/01/2008 3:53 PM 12/02/2008 2:42 PM Care Teams School Director Relationship Specialty Start Date End Date Palmira Dutton PA-C [facility] [place] [address] PCP - General Physician Wood Stainer 11/07/18 documented as of this encounter
--- OUTSIDE RECORDS SUMMARY | 2024-05-05 11:08 | External Medical Summary | Summary of Care ---
Author Name Unknown Organization [facility] Address [address] [place] [address] Phone [phone] Care Team Providers Care Sock And Stocking Ironer Name Role Phone Palmira Dutton PA-C Primary Care Provider Reason for Visit * Reason Comments Outpatient Testing Encounter Details Date Type Department Care Team (Late st Contact Info) Description 04/22/2024 9:20 AM EDT Laboratory Laboratory, [id number] [place] [address] G[facility], [address] [place] [address] Essential hypertension with goal blood pressure less than 140/90; Mixed hyperlipidemia; Acquired hypothyroidism; Prediabetes Allergies Active Allergy Reactions Criticality Noted Date Comments Moxifloxacin Hcl In Nacl 09/07/2008 BP dropped dramatically Quinolones 09/07/2008 Pt states she is allergic to avelox-unsure which one-but BP dropped dramatically Clarithromycin 06/15/2018 Severe diarrhea Cat Dander 06/15/2018 Rosuvastatin Muscle pain 04/16/2021 documented as of this encounter (statuses as of 04/22/2024) Medications Medication Sig Dispensed Refills Start Date [...] as of this encounter (statuses as of 04/22/2024) Active Problems Problem Noted Date Diagnosed Date [...] as of this encounter (statuses as of 04/22/2024) Resolved Problems Problem Noted Date Diagnosed Date Resolved Date Right knee DJD 01/27/2023 11/20/2023 Hx of stress fx 11/05/2011 01/05/2019 documented as of this encounter (statuses as of 04/22/2024) Immunizations Name Administration Dates Next Due PPD [...] Care Team (Late st Contact Info) Description 04/26/2024 3:00 PM EDT Office Visit Family Practice[address] [address] Palmira Dutton PA-C [address] [place] [id number] 05/03/2024 1:00 PM EDT Appointment Radiology[address] [address] 05/03/2024 2:00 PM EDT Hospital Encounter Radiology[address] [address] Scheduled Orders Name Type Priority Associated Diagnoses Orde r Schedule CBC Lab Routine Essential hypertension with goal blood pressure less than 140/90 Mixed hyperlipidemia Acquired hypothyroidism Ordered: 04/22/2024 DIFFERENTIAL, AUTOMATED Lab Routine Essential hypertension with goal blood pressure less than 140/90 Mixed hyperlipidemia Acquired hypothyroidism Ordered: 04/22/2024 Health Maintenance Due Date Last Done Comments Pneumococcal Vaccine: 65+ Years (1 of 2 - PCV) 01[birth year]27/1956 DTap/Tdap Vaccines (1 - Tdap) 01/27/1971 Cologuard 01/27/1997 Fecal Occult Blood Test 01/27/1997 Sigmoidoscopy 01/27/1997 Zoster Vaccines (1 of 2) 01/27/2002 DXA Scan 04/30/2023 04/30/2016 Adult Wellness Visit 09/04/2023 09/04/2022, 08/23/19 22 Colonoscopy 01/25/2024 01/24/2023, 05/15/2012 Colorectal Cancer Screening 01/25/2024 Depression Screening 04/08/2024 04/08/2023 COVID-19 Vaccine ( season) 2024 Influenza Vaccine (FLU shot) (#1) 2024 Mammogram 04/28/2024 04/28/2023, 01/2022, 07/02/2021, Additional history exists HbA1c 11/16/2024 11/17/2023 TSH 11/16/2024 11/17/2023, 03/18, 08/30/2022, Additional history exists GFR 04/15/2025 04/15/2024, 08/2023, 09/08/2023, Additional history exists Albumin/Creatinine Ratio 11/16/2026 11/17/2023 Lipid Panel 11/16/2028 11/17/2023, 03/18, 08/30/2022, Additional history exists RETIRED - COLONOSCOPY-ANNUAL AGES [...] this encounter Medical Devices Implanted Type Area Concrete Stone Finishing Supervisor Device Identifier Shelf Expiration Date Model / Serial / Lot Iliac Crest F/D 9mm [id number] - [id number] Implanted:Qty: 1 on 12/01/2008 at [facility] Tissue - Human Left: Foot MUSCULOSKELETAL TRANSPLANT FND 10/13/2010 [id number] / [id number] / Graft Chamber Small [id number] - [id number] Implanted:Qty: 1 on 12/01/2008 at OR [facility] Tissue - Human Left: Foot [employer] [id number] / [id number] / Screw Cannul 7.3mm 208.875 - [id number] Implanted:Qty: 1 on 12/01/2008 at OR [facility] Left: Foot SYNTHES 208.875 / / Screw Cannul 4.5mm 214.536 - [id number] Implanted:Qty: 1 on 12/01/2008 at OR [facility] Left: Foot SYNTHES 214.536 / / Screw Cannul 4.5mm 214.538 - [id number] Implanted:Qty: 1 on 12/01/2008 at [facility] Left: Foot SYNTHES 214.538 / / Screw Cannul 4.5mm 214.550 - [id number] Implanted:Qty: 1 on 12/01/2008 at OR [facility] Left: Foot SYNTHES 214.550 / / Staple Compr 15x15 [id number] - [id number] Implanted:Qty: 1 on 12/01/2008 at OR [facility] Left: Foot [employer] [id number] / / Annona Suture Biocomposite - [id number] Implanted:Qty: 1 on 03/20/2020 by Isaías Day MD at OR [facility] Left: Shoulder [employer] 12/16/2023 [id number] / / [id number] documented as of this encounter Visit Diagnoses Diagnosis Essential hypertension with goal blood pressure less than 140/90 Mixed hyperlipidemia Acquired hypothyroidism Unspecified hypothyroidism Prediabetes Other abnormal glucose documented in this encounter Advance Directives * Full Code (Latest Code Status on File) Date Activated Date Inactivated Comments 03/20/2020 11:50 AM 03/20/2020 5:36 PM This order re flects the patients wishes and were consensually agreed upon. * Full Code Date Activated Date Inactivated Comments 12/01/2008 3:53 PM 12/02/2008 2:42 PM Care Teams Sock And Stocking Ironer Relationship Specialty Start Date End Date Palmira Dutton PA-C [facility] [place] [address] PCP - General Physician Asparagus Cutter 11/07/18 documented as of this encounter
--- OUTSIDE RECORDS SUMMARY | 2024-05-05 11:08 | External Medical Summary ---
Author Name Unknown Address Unknown Organization K01:LABORATORY [facility] [place] [facility] - [address] [place], [place] [address] Laboratory Report Ordering Provider Test Date Status SEEPREETHI 04/22/2024 09:22:01 Final Observation Date Value Abnormality Reference (Units ) Status TSH 04/22/2024 09:22:01 1.55 0.27-4.20 (uIU/mL) Final Performing Location LABORATORY [facility] [facility] - [address] [place], [place] [address]
--- OUTSIDE RECORDS SUMMARY | 2024-05-05 11:08 | External Medical Summary | Continuity of Care Document ---
Author Name Unknown Organization [facility] [address] [id number] Address [address] [place] [phone] [id number] 04/15/24 - 04/15/24 [facility] [address] [facility] [address] [facility] [address] [place] [address] Encounter Diagnosis Left knee DJD(Discharge Diagnosis) - 04/15/24 Discharge Disposition: Home or Self Care Attending Physician: GRETA Palomo, Maximus Barahona Referring Physician: MD Husam, Maxx Leiva Allergies, Adverse Reactions, Alerts Substance Criticality Severity Reaction Reaction Severity Status Biaxin GI issues Active Avelox Hypotension Active Medications amoxicillin 500 mg oral capsule Start: 11/20/23 8:03:00 PM EDT, 4 cap, PO, As indicated, Disp# 4 cap, Refills: 3, one hour before dental procedures as directed, Pharmacy: [facility]/pharmacy #[id number] Start Date: 11/20/23 Status: Ordered Ativan 0.5 mg oral tablet Start: 04/09/19 10:47:00 AM EDT, 1 tab, PO, PRN: as needed for anxiety Start Date: 04/09/19 Status: Ordered Calcium 600+D oral tablet Start: 08/25/19 1:49:00 PM EST, 1 tab, PO, qhs Start Date: 08/25/19 Status: Ordered Euflexxa 10 mg/mL intra-articular solution Start: 06/07/22 1:29:00 PM EDT, 20 mg =, intra-articular, q7days, Disp# 12 mL, bre knee euflexxa series, Brand Medically Necessary Start Date: 06/07/22 Status: Ordered hydroCHLOROthiazide 25 mg oral tablet Start: 10/12/20 3:26:00 PM EST, 1 tab, PO, Daily Start Date: 10/12/20 Status: Ordered lisinopril 10 mg oral tablet Start: 02/04/22 8:30:00 AM EDT, 1 tab, PO, Daily, 15mg daily Start Date: 02/04/22 Status: Ordered multivitamin Start: 04/09/19 10:49:00 AM EDT, 1 tab, PO, Daily Start Date: 04/09/19 Status: Ordered Percocet 5 mg-325 mg oral tablet Start: 10/29/23 1:23:00 PM EDT, 2 tab, PO, q6h, Disp# 20 tab, Refills: 0, Note to Pharmacy: ongoing script, PRN: as needed for pain, Pharmacy: [facility]/pharmacy #[id number] Start Date: 10/29/23 Status: Ordered Synthroid 50 mcg (0.05 mg) oral tablet Start: 04/09/19 10:46:00 AM EDT, 1 tab, PO, Daily Start Date: 04/09/19 Status: Ordered traMADol 50 mg oral tablet Start: 04/24/23 2:47:00 PM EDT, 1 tab, PO, q4h, PRN: as needed for pain Start Date: 04/24/23 Status: Ordered trospium 20 mg oral tablet Start: 08/25/19 1:52:00 PM EST, 1 tab, PO, PRN Start Date: 08/25/19 Status: Ordered Ventolin HFA 90 mcg/inh inhalation aerosol Start: 08/25/19 1:48:00 PM EST, 2 puff, inhaled, qid, PRN: as needed for wheezing Start Date: 08/25/19 Status: Ordered ZyrTEC 10 mg oral tablet Start: 04/09/19 10:47:00 AM EDT, 1 tab, PO, Daily Start Date: 04/09/19 Status: Ordered Mental Status 04/15/24 Barriers to Learning one year None evide nt Mandatory Health Literacy Documentation Yes Health Literacy Communication Barriers N ever Primary Language Croatian Problem List Condition Confirmation Course Effective Dates Status H ealth Status Informant Arthritis Confirmed Active Cataracts, bilateral Confirmed Active Thyroid disease Confirmed Active Status post right knee replacement Confirmed Active Hypertension Confirmed Active Hypothyroid Confirmed Active Bilateral knee pain Confirmed Active Bilateral primary osteoarthritis of knee Confirmed Active Diagnosis Diagnosis Type Effective Dates Health Status Cl inical Service Informant Left knee DJD Discharge Diagnosis 04/15/24 Procedures Procedure Date Related Diagnosis Body Site Status REPAIR ROTATOR CUFF ACUTE 03/20/20 Completed Cholecystectomy 2016 Completed GASTROCNEMUS RELEASE- left leg 01/03/15 Completed Triple arthrodesis- right foot 2014 Completed Ovarian mass- right 2014 Compl eted Triple arthrodesis- left foot 2008 Completed Bunionectomy- right Compl eted Vital Signs Most recent to oldest [Reference Range]: 1 Height 159 cm (04/15/24 2:25 PM) Patient Weight 106.4 kg (04/15/24 2:25 PM) Body Mass Index 42.09 kg/m2 (04/15/24 2:25 PM) Temperature [36.5-37.9 DegC] 35.3 DegC *LOW* (04/15/24 2:25 PM) Heart Rate 90 bpm (04/15/24 2:25 PM) Respiratory Rate 18 br/min (04/15/24 2:25 PM) Blood Pressure 170/80mmHg (04/15/24 2:25 PM) Cuff Pulse Pressure 90 mmHg (04/15/24 2:25 PM) Social History Social History Type Response Smoking Status Never smoked cigaret suzanne Sex Female Sex Representation Female (finding) Implantable Device List Procedure Provider Procedure Date Device Type Site Unknown Unknown 08/31/19 Unknown Unknown Device Identifier Serial Number Lot or Batch Number Manufacturing Date Expiration Date Distinct Identification Code MRI Safety Implantable Status Assigning Authority Unknown Unknown [id number] Unknown 12/19/20 Unknown Unknown Active Unkno wn [...] P * GRETA Palomo Cory D: PERFORM, MODIFY Event Display: Pre-OP H & P Authored Date: [id number] PRE-OPERATIVE HISTORY AND PHYSICAL Name: DIETER DUMONT I Patient Number: [id number] : 1950 Date of Service: 04/15/2024 PRE-OP Diagnosis: Left knee DJD Planned Procedure: Left knee total knee arthroplasty Chief Complaint: Left knee pain History of Present Illness (including history relevant to procedure): This 74-year-old female presents today with her , for her preoperative history and physical. She is scheduled to undergo aleft knee total knee arthroplasty with Dr. Weiner on 05/05/2024. The patient has a longstanding history of left knee pain. It has become worse with time. It is worse with weightbearing. She hasa previous right total knee arthroplasty done September 24, 2023. She has done well with it and elects to proceed with the same on the left. Her pain is affecting her ADLs. No numbness or tingling. Preoperative imaging has been obtained today. Review Of Systems: A total of 10 systems were reviewed and are significant only for below stated conditions. Family history: Significant hypertension in her mother, diabetes in her maternal grandmother, rheumatoid heart disease in her father, breast cancer in her sisters. Her daughter is from [email or web address]. She had known rheumatoid arthritis as well. Social history: . Retired. Former nurse. No tobacco use, no EtOH use. Past Medical History: Problems: Status post right knee replacement Bilateral primary osteoarthritis of knee Bilateral knee pain Hypothyroid Hypertension Thyroid disease Cataracts, bilateral Arthritis Procedure History Procedure Procedure Date Comments Bunionectomy- right Cataract surgery Unknown REPAIR ROTATOR CUFF ACUTE left 03/20/2020 Cholecystectomy About 2016 Triple arthrodesis- right foot 2014 GASTROCNEMUS RELEASE- left leg 01/03/2015 Ovarian mass- right 2014 Triple arthrodesis- left foot Right knee TKA 200809/24/2023 Allergies and Sensitivities: Biaxin(GI issues) Avelox(Hypotension) Current Home Meds: (Last Updated 04/15 14:27) LORazepam (Ativan 0.5 mg oral tablet) 0.5 mg PO PRN: as needed for anxiety acetaminophen-oxycodone (Percocet 5 mg-325 mg oral tablet) 2 tab PO q6h PRN: as needed for pain albuterol (Ventolin HFA 90 mcg/inh inhalation aerosol) 2 puff inhaled qid PRN: as needed for wheezing amoxicillin (amoxicillin 500 mg oral capsule) 2,000 mg PO As indicated one hour before dental procedures as directed calcium-vitamin D (Calcium 600+D oral tablet) 1 [...] 20 mg PO PRN Vitals: Last Updated 04/15/24 14:25 Weights: Last Updated 04/15/24 14:25 Date Temp Pulse BP RR SpO2 FIO2 Date Wt(kg) Wt(lb) 04/15 14: 35.3 90 170/80 18 98 04/15 14:25 106.4 234 04/15 14: 106.4 234 24 Hr Tmax: 35.3 at 04/15 14:25 Initial Wt: 04/15 106.4 kg 234 lb Physical Exam: (relevant to the procedure, including heart and lung evaluation) General: Well-developed, well-nourished, elderly female, in no acute distress. Sitting in a chair. Alert and oriented. HEENT: Normocephalic, atraumatic. Eyes PERRLA, EOMI. Nares patent bilaterally without nasal drainage. Oropharynx with moist oral mucosa. No lesions are noted. Upper dentures are noted. Neck: No JVD. Cardiac: RRR. No MGR. Peripheral pulses are 2+. Lungs: Clear to auscultation bilaterally. No crackles, rhonchi, or wheezing. Good air movement. Abdomen: Obese. Bowel sounds present x 4. Soft nontender. No organomegaly. No masses. Extremities: Left knee evaluation reveals a varus positioning. Obvious arthritic change. She lacks approximately 10 degrees of terminal extension. Flexion to greater than 90 degrees. This is limited by body habitus. Strength is 5/5 with fair quad tone. Stable collateral ligaments. No palpable defect in the patellar tendon or quadriceps tendon. There is focal pain with palpation over the medial and lateral joint lines with medial being worst. Ambulating today with an antalgic gait. Neuro: Gross sensation is intact across both lower extremities by soft touch. Skin: Warm dry with good turgor. No rashes. No ecchymosis or erythema. No intra- articular effusion in the left knee. Well-healed surgical scar is present on the right. Studies of Lab Results (relevant to the procedure): Radiographic imaging obtained today of the terrance was interpreted by me and read by radiology. She has significant joint space loss medially. Periarticular osteophytes and subchondral sclerosis are also present. ASSESSMENT: Left knee DJD Plan: The patient and her were educated regarding today's findings. Conservative care measures were discussed. Informed written consent was obtained to proceed with left total knee arthroplasty. PDMP was checked and there are no concerning findings. She has an appointment to see her PCP formedical clearance. She will be sent to the hospital today for preadmission lab work. EKG and chest x-ray are up-to-date. She would like to have home health for 2 weeks and then attend outpatient PT. This will be arranged. Prescriptions for Percocet and Eliquis will be sent to her pharmacy upon discharge from the hospital. She will likely have a Prevena in place, similar to her previous surgery. Abhijit see her 1 week postop for removal. The patient is currently asymptomatic of any COVID-19 or influenza symptoms. Postop follow-up appointment has been made with me for May 20. This dictation has been completed using [employer] text voice recognition software. Grammatical errors, omissions, insertions, and misspellings may be present due to the limitations of the software. Electronic Signature on File Electronically Reviewed/Signed by: Maximus Palomo PA-C Author Signature Dt/Tm:04/15/2024 08:27 PM Division of Sports Medicine Electronically Reviewed/Signed by: Maxx Weiner MD Cosigner Signature Dt/Tm: 04/15/2024 08:41 PM Hospital Chief Executive Officer for Clinical Affairs, [facility] [place] Professor in Orthopaedics Truck Rental Clerk, [facility] CDS Patient Care team information Care Team Related Persons Name: DELMY DUMONTE Frandy Name: MARY GRACE GONZALES
--- OUTSIDE RECORDS SUMMARY | 2024-05-05 11:08 | External Medical Summary ---
Author Name Unknown Address Unknown Organization K1G:LABORATORY [facility] - [address] [facility] [address] Laboratory Report Ordering Provider Test Date Status PREETHI CUI 04/22/2024 09:22:01 Final Observation Date Value Abnormality Reference (Units ) Status SYNC LEUKOCYTES IN BLOOD BY AUTOMATED COUNT 04/22/2024 09:22:01 6.90 4.00-10.80 (K/uL) Final Segs 04/22/2024 09:22:01 67.8 40.0-75.0 (%) Final Lymphs % 04/22/2024 09:22:01 17.4 Below low normal 18.0-42.0 (%) Final Monos 04/22/2024 09:22:01 9.9 1.0-11.0 (%) Final Eosinophils 04/22/2024 09:22:01 4.3 0.0-6.0 (%) Final Basos 04/22/2024 09:22:01 0.6 0.0-2.0 (%) Final Absolute Segs 04/22/2024 09:22:01 4.68 1.80-7.70 (K/uL) Final Lymphs, absolute 04/22/2024 09:22:01 1.20 1.00-4.80 (K/ul) Final Monos, Abs 04/22/2024 09:22:01 0.68 0.00-1.10 (K/uL) Final Eos, Abs 04/22/2024 09:22:01 0.30 0.00-0.70 (K/uL) Final Basos, Abs 04/22/2024 09:22:01 0.04 0.00-0.20 (K/uL) Final Performing Location [facility] [address] [facility] [address]
--- OUTSIDE RECORDS SUMMARY | 2024-05-05 11:08 | External Medical Summary ---
Author Name Unknown Address Unknown Organization K1G:LAB[facility]ATORY [facility] - [address] [facility] [id number] Laboratory Report Ordering Provider Test Date Status PREETHI CUI 04/22/2024 09:22:01 Final Observation Date Value Abnormality Reference (Units ) Status BUN 04/22/2024 09:22:01 19 6-20 (mg/dL) Final Creatinine 04/22/2024 09:22:01 0.9 0.5-1.0 (mg/dL) Final Glomerular filtration rate/1.73 sq M.predicted [Volume Rate/Area] in Serum, Plasma or Blood by Creatinine-based formula (CKD-EPI) 04/22/2024 09:22:01 68 >=60 (mL/min) Final eGFR is calculated based on the CKD-EPI 2020 equation. Sodium 04/22/2024 09:22:01 138 135-146 (m mol/L) Final Potassium 04/22/2024 09:22:01 3.8 3.5-5.1 (m mol/L) Final Cl 04/22/2024 09:22:01 100 98-107 (mm ol/L) Final CO2 04/22/2024 09:22:01 27 22-32 (mmo l/L) Final Anion gap 04/22/2024 09:22:01 11 7-15 (mmol /L) Final Glucose 04/22/2024 09:22:01 112 70-120 (mg /dL) Final Albumin 04/22/2024 09:22:01 4.1 3.8-5.0 (g /dL) Final AST (Aspartate aminotransferase) 04/22/2024 09:22:01 16 10-35 (U/L) Final Alk Phos 04/22/2024 09:22:01 84 35-130 (U/ L) Final Bilirubin, Total 04/22/2024 09:22:01 0.3 <=1 .2 (mg/dL) Final Calcium 04/22/2024 09:22:01 9.8 8.4-10.2 ( mg/dL) Final Protein 04/22/2024 09:22:01 6.7 6.0-8.3 (g /dL) Final ALT (Alanine aminotransferase) 04/22/2024 09:22:01 19 10-35 (U/L) Final Performing Location LABORATORY [facility] - [address] [place] [id number]
--- OUTSIDE RECORDS SUMMARY | 2024-05-05 11:08 | External Medical Summary | Summary of Care ---
Author Name Unknown Organization [facility] Address [address] [place] [address] Phone [phone] Care Team Providers Care Fondant Machine Operator Name Role Phone Palmira Dutton PA-C Primary Care Provider Encounter Details Date Type Department Care Team (Late st Contact Info) Description 04/15/2024 Result Scan Unspecified Department <No scans attached> Allergies Active Allergy Reactions Criticality Noted Date Comments Moxifloxacin Hcl In Nacl 09/07/2008 BP dropped dramatically Quinolones 09/07/2008 Pt states she is allergic to avelox-unsure which one-but BP dropped dramatically Clarithromycin 06/15/2018 Severe diarrhea Cat Dander 06/15/2018 Rosuvastatin Muscle pain 04/16/2021 documented as of this encounter (statuses as of 04/16/2024) Medications Medication Sig Dispensed Refills Start Date [...] as of this encounter (statuses as of 04/16/2024) Active Problems Problem Noted Date Diagnosed Date [...] as of this encounter (statuses as of 04/16/2024) Resolved Problems Problem Noted Date Diagnosed Date Resolved Date Right knee DJD 01/27/2023 11/20/2023 Hx of stress fx 11/05/2011 01/05/2019 documented as of this encounter (statuses as of 04/16/2024) Immunizations Name Administration Dates Next Due PPD [...] 04/26/2024 3:00 PM EDT Office Visit Family Practice, [address] [address] Palmira Dutton PA-C [address] [place] [address] 05/03/2024 1:00 PM EDT Appointment Radiology, [address] [address] 05/03/2024 2:00 PM EDT Hospital Encounter Radiology, [address] [address] Health Maintenance Due Date Last Done Comments Pneumococcal Vaccine: 65+ Years (1 of 2 - PCV) 01/27/1956 DTap/Tdap Vaccines (1 - Tdap) 01/27/1971 Cologuard 01/27/1997 Fecal Occult Blood Test 01/27/1997 Sigmoidoscopy 01/27/1997 Zoster Vaccines (1 of 2) 01/27/2002 COVID-19 Vaccine (1 - season) 2023 DXA Scan 04/30/2023 04/30/2016 Adult Wellness Visit 09/04/2023 09/04/2022, 08/23/19 22 Colonoscopy 01/25/2024 01/24/2023, 05/15/2012 Colorectal Cancer Screening 01/25/2024 Depression Screening 04/08/2024 04/08/2023 Influenza Vaccine (FLU shot) (#1) 2024 Mammogram 04/28/2024 04/28/2023, 01/0 01/2022, 07/02/2021, Additional history exists GFR 11/16/2024 11/17/2023, 08/19, 04/04/2023, Additional history exists HbA1c 11/16/2024 11/17/2023 TSH 11/16/2024 11/17/2023, 03/18, 08/30/2022, Additional history exists Albumin/Creatinine Ratio 11/16/2026 11/17/2023 [...] this encounter Medical Devices Implanted Type Area Resort Housekeeper Device Identifier Shelf Expiration Date Model / Serial / Lot Iliac Crest F/D 9mm [id number] - [id number] Implanted:Qty: 1 on 12/01/2008 [place] [facility] [place] - Human Left: Foot MUSCULOSKELETAL TRANSPLANT FND 10/13/2010 [id number] / [id number] / Graft Chamber Small Shh640 - [id number] Implanted:Qty: 1 on 12/01/2008 at [place] [facility] [place] - Human Left: Foot [employer] [id number] / [id number] [id number] / Screw Cannul 7.3mm 208.875 - [id number] Implanted:Qty: 1 on 12/01/2008 at [place] [facility] [place] Left: Foot SYNTHES 208.875 / / Screw Cannul 4.5mm 214.536 - [id number] Implanted:Qty: 1 on 12/01/2008 at [place] [facility] [place] Left: Foot SYNTHES 214.536 / / Screw Cannul 4.5mm 214.538 - [id number] Implanted:Qty: 1 on 12/01/2008 at [place] [facility] [place] Left: Foot SYNTHES 214.538 / / Screw Cannul 4.5mm 214.550 - [id number] Implanted:Qty: 1 on 12/01/2008 at [place] [facility] [place] Left: Foot SYNTHES 214.550 / / Staple Compr 15x15 [id number] - [id number] Implanted:Qty: 1 on 12/01/2008 at [place] [facility] [place] Left: Foot [employer] [id number] / / [place] Suture Biocomposite - [id number] Implanted:Qty: 1 on 03/20/2020 by Isaías Day MD at OR [facility] Left: Shoulder [employer] 12/16/2023 [id number] / / [id number] documented as of this encounter Procedures Procedure Name Priority Date/Time Associated Diagnosis Comments OUTSIDE LAB RESULTS 04/15/2024 documented in this encounter Results * OUTSIDE LAB RESULTS (04/15/2024) 04/15/2024 No Physician Data Unknown LABORATORY documented in this encounter Advance Directives * Full Code (Latest Code Status on File) Date Activated Date Inactivated Comments 03/20/2020 11:50 AM 03/20/2020 5:36 PM This order re flects the patients wishes and were consensually agreed upon. * Full Code Date Activated Date Inactivated Comments 12/01/2008 3:53 PM 12/02/2008 2:42 PM Care Teams Fondant Machine Operator Relationship Specialty Start Date End Date Palmira Dutton PA-C [facility] [place] [address] PCP - General Physician Rn Military 11/07/18 documented as of this encounter
--- OUTSIDE RECORDS SUMMARY | 2024-05-05 11:08 | External Medical Summary ---
Author Name Unknown Address Unknown Organization [id number]:LABORATORY [facility] [place] - [address] [place] [address] Laboratory Report Ordering Provider Test Date Status PREETHI CUI 04/22/2024 09:22:01 Final Observation Date Value Abnormality Reference (Units ) Status HbA1C 04/22/2024 09:22:01 5.9 Above high normal 4. 0-5.6 (%) Final The use of HbA1c to monitor glycemic status is based on normal hemoglobin and HbA composition. This test should not be used in patients with abnormal hemoglobin that affects the half life of the red blood cell or the in vivo glycation rates. Glucose, estimated average 04/22/2024 09:22:01 123 <126 (mg/dL) Final Performing Location [facility] [address] [facility] [address]
--- OUTSIDE RECORDS SUMMARY | 2024-05-05 11:08 | External Medical Summary | Summary of Care ---
Author Name Unknown Organization [facility] Address [address] [place] [address] Phone [phone] Care Team Providers Care Power Press Supervisor Name Role Phone Palmira Dutton PA-C Primary Care Provider Encounter Details Date Type Department Care Team (Late st Contact Info) Description 04/16/2024 Orders Only Family Practice, [facility] [address] [place], [place] [id number] [phone] Palmira Dutton PA-C [address] [place] [address] Allergies Active Allergy Reactions Criticality [...] 04/26/2024 3:00 PM EDT Office Visit Family Practice[address] [address] Palmira Dutton PA-C [address] [place] [address] 05/03/2024 1:00 PM EDT Appointment Radiology, [address] [address] 05/03/2024 2:00 PM EDT Hospital Encounter Radiology, [address] [address] Health Maintenance Due Date Last Done Comments Pneumococcal Vaccine: 65+ Years (1 of 2 - PCV) 01/27/1956 DTap/Tdap Vaccines (1 - Tdap) 01/27/1971 Cologuard 01/27/1997 Fecal Occult Blood Test 01/27/1997 Sigmoidoscopy 01/27/1997 Zoster Vaccines (1 of 2) 01/27/2002 COVID-19 Vaccine ( - season) 2023 DXA Scan 04/30/2023 04/30/2016 Adult Wellness Visit 09/04/2023 09/04/2022, 08/23/19 22 Colonoscopy 01/25/2024 01/24/2023, 05/15/2012 Colorectal Cancer Screening 01/25/2024 Depression Screening 04/08/2024 04/08/2023 Influenza Vaccine (FLU shot) (#1) 2024 Mammogram 04/28/2024 04/28/2023, 01/2022, 07/02/2021, Additional history exists GFR 11/16/2024 04/15/2024, 08/2023, 09/08/2023, Additional history exists HbA1c 11/16/2024 11/17/2023 TSH [...] this encounter Medical Devices Implanted Type Area Epidemiology Intern Device Identifier Shelf Expiration Date Model / Serial / Lot Iliac Crest F/D 9mm [id number] - [id number] Implanted:Qty: 1 on 12/01/2008 at [place] [facility] [place] Tissue - Human Left: Foot MUSCULOSKELETAL TRANSPLANT FND 10/13/2010 [id number] / [id number] / Graft Chamber Small [id number] - [id number] Implanted:Qty: 1 on 12/01/2008 at OR [facility] [place] Tissue - Human Left: Foot [employer] [id number] / [id number] [id number] / Screw Cannul 7.3mm 208.875 - [id number] Implanted:Qty: 1 on 12/01/2008 at [place] [facility] [place] Left: Foot SYNTHES 208.875 / / Screw Cannul 4.5mm 214.536 - [id number] Implanted:Qty: 1 on 12/01/2008 at [place] [facility] [place] Left: Foot SYNTHES 214.536 / / Screw Cannul 4.5mm 214.538 - [id number] Implanted:Qty: 1 on 12/01/2008 at [place] [facility] [place] Left: Foot SYNTHES 214.538 / / Screw Cannul 4.5mm 214.550 - [id number] Implanted:Qty: 1 on 12/01/2008 at [place] [facility] [place] Left: Foot SYNTHES 214.550 / / Staple Compr 15x15 [id number] - [id number] Implanted:Qty: 1 on 12/01/2008 at [place] [facility] [place] Left: Foot [employer] [id number] / / [place] Suture Biocomposite - [id number] Implanted:Qty: 1 on 03/20/2020 by Isaías Day MD at OR [facility] Left: Shoulder [employer] 12/16/2023 [id number] / / [id number] documented as of this encounter Procedures Procedure Name Priority Date/Time Associated Diagnosis Comments CHEMISTRY-OUTSIDE Routine 04/15/2024 documented in this encounter Results * CHEMISTRY-OUTSIDE (04/15/2024) Not all results display below - see scan for full detail OUTSIDE LAB (SEE SCANNED REPORT) Comment:SCAN INCLUDES: BMP, CBCD, UA CREATININE-OUTSI DE LAB 1.00 0.6 - 1.2 MG/DL OUTSIDE LAB (SEE SCANNED REPORT) EGFR-OUTSIDE LAB 56.2 ML/MIN OUT SIDE LAB (SEE SCANNED REPORT) POTASSIUM-OUTSID E LAB 3.5 3.5 - 5.1 MMOL/L OUTSIDE LAB (SEE SCANNED REPORT) GLUCOSE-OUTSIDE LAB 93 70 - 99 MG/DL OUTSIDE LAB (SEE SCANNED REPORT) HOURS FASTING OUTSID E LAB (SEE SCANNED REPORT) TRIGLYCERIDES-OU TSIDE LAB OUTSIDE LAB (SEE SCANNED REPORT) CHOLESTEROL-OUTS [place] LAB OUTSIDE LAB (SEE SCANNED REPORT) HDL-OUTSIDE LAB OUTS [place] LAB (SEE SCANNED REPORT) CHOL/HDL RATIO-OUTSIDE LAB OUTSIDE LAB (SEE SCANNED REPORT) LDL (CALCULATED)-OUT SIDE LAB OUTSIDE LAB (SEE SCANNED REPORT) LDL (DIRECT MEASURE)-OUTSIDE LAB OUTSIDE LAB (SEE SCANNED REPORT) HEMOGLOBIN, [id number] LAB OUTSIDE LAB (SEE SCANNED REPORT) PHOSPHORUS-OUTSI DE LAB OUTSIDE LAB (SEE SCANNED REPORT) PTH-OUTSIDE LAB OUTS [facility] LAB (SEE SCANNED REPORT) MICROALBUMIN RATIO-OUTSIDE LAB OUTSIDE LAB (SEE SCANNED REPORT) PROTEIN, UA-OUTSIDE LAB NEGATIVE NEGATIVE OUTSIDE LAB (SEE SCANNED REPORT) HGB 12.5 12.0 - 16.0 G/DL OUTSIDE LAB (SEE SCANNED REPORT) 04/15/2024 Maximus Palomo PA-C LABORATORY OUTSIDE LAB (SEE SCANNED REPORT) documented in this encounter Advance Directives * Full Code (Latest Code Status on File) Date Activated Date Inactivated Comments 03/20/2020 11:50 AM 03/20/2020 5:36 PM This order re flects the patients wishes and were consensually agreed upon. * Full Code Date Activated Date Inactivated Comments 12/01/2008 3:53 PM 12/02/2008 2:42 PM Care Teams Power Press Supervisor Relationship Specialty Start Date End Date Palmira Dutotn PA-C [address] [place] [address] PCP - General Physician Photogrammetry Airplane Pilot 11/07/18 documented as of this encounter
--- OUTSIDE RECORDS SUMMARY | 2024-05-05 11:08 | External Medical Summary ---
Author Name Unknown Address Unknown Organization K01:LABORATORY [facility] - [address] [place] [address] Laboratory Report Ordering Provider Test Date Status PREETHI CUI 04/22/2024 09:22:01 Final Observation Date Value Abnormality Reference (Units ) Status Triglyceride 04/22/2024 09:22:01 225 Above high normal <=174 (mg/dL) Final Triglyceride Reference Range s (mg/dL):
<150 Acceptable
150-174 Borderline high
175-499 High
>=500 Very high Cholesterol 04/22/2024 09:22:01 256 Above high normal <200 (mg/dL) Final Total Cholesterol Reference Ranges (mg/dL):
<200 Desirable
200-239 Borderline high
>=240 High HDL 04/22/2024 09:22:01 48 Below low normal >49 (mg/dL) Final HDL Cholesterol Reference Ra nges (mg/dL):
>=60 High (Desirable)
<50 Low (Undesirable) For Females
<40 Low (Undesirable) For Males NON-HDL CHOLESTEROL 04/22/2024 09:22:01 208 Above high normal <=159 (mg/dL) Final Non-HDL Cholesterol Referenc e Range (mg/dL):
<100 Target level for high risk ASCVD patient
<130 Optimal for general population
130-159 Near optimal for general population
160-189 Borderline High
190-219 High
>=220 Very High LDL, (calculated) 04/22/2024 09:22:01 163 Above high n ormal <=129 (mg/dL) Final LDL Cholesterol Reference Ra nges (mg/dL):
<70 Target level for high risk ASCVD patient
<100 Optimal for general population
100-129 Near optimal for general population
130-159 Borderline high
160-189 High
>=190 Very high Performing Location LABORATORY [facility] [place] - [address] [facility] [address]
--- OUTSIDE RECORDS SUMMARY | 2024-05-05 11:08 | External Medical Summary | Summary of Care ---
Author Name Unknown Organization [facility] Address [address] [place] [address] Phone [phone] Care Team Providers Care Crusher Loader Equipment Operator Name Role Phone Palmira Dutton PA-C Primary Care Provider Reason for Visit * Reason Comments Follow Up Pt presents for a 6 month follow up, also here for a physical preop clearance Encounter Details Date Type Department Care Team (Late st Contact Info) Description 04/26/2024 3:00 PM EDT Office Visit [facility] [address] [place] [address] Palmira Dutton PA-C [address] [place] [address] Preop examination*; Primary osteoarthritis of left knee; Prediabetes; Essential hypertension with goal blood pressure less than 140/90; Acquired hypothyroidism; Mixed hyperlipidemia Allergies Active Allergy Reactions Criticality Noted Date Comments Moxifloxacin Hcl In Nacl 09/07/2008 BP dropped dramatically Quinolones 09/07/2008 Pt states she is allergic to avelox-unsure which one-but BP dropped dramatically Clarithromycin 06/15/2018 Severe diarrhea Cat Dander 06/15/2018 Rosuvastatin Muscle pain 04/16/2021 documented as of this encounter (statuses as of 04/28/2024) Medications Medication Sig Dispensed Refills Start Date [...] as of this encounter (statuses as of 04/28/2024) Active Problems Problem Noted Date Diagnosed Date [...] as of this encounter (statuses as of 04/28/2024) Resolved Problems Problem Noted Date Diagnosed Date Resolved Date Right knee DJD 01/27/2023 11/20/2023 Hx of stress fx 11/05/2011 01/05/2019 documented as of this encounter (statuses as of 04/28/2024) Immunizations Name Administration Dates Next Due PPD [...] Sign Reading Time Taken Comments Blood Pressure 122/74 04/26/2024 3:04 PM EDT Pulse 88 04/26/2024 3:04 PM EDT Temperature 36.8 C (98.2 F) 04/26/2024 3:04 PM ED T Respiratory Rate - - Oxygen Saturation 96% 04/26/2024 3:04 PM EDT Inhaled Oxygen Concentration - - Weight 108.1 kg (238 lb 6.4 oz) 04/26/2024 3:04 PM EDT Height - - Body Mass Index 42.5 11/20/2023 1:34 PM EDT documented in this encounter Patient Instructions * Patient Instructions* Palmira Dutton PA-C - 04/26/2024 3:26 PM EDT Please have your blood work performed 1-2 weeks prior to your next visit, fasting 10-12 hours, you can drink water and/or black coffee. documented in this encounter Nursing Notes * Gee Lim CMA - 04/26/2024 3:04 PM EDT The patient has been properly identified by confirmation of name and date of . Chief Complaint Patient presents with Follow Up Pt presents for a 6 month follow up, also here for a physical preop clearance documented in this encounter Plan of Treatment Upcoming Encounters Date Type Department Care Team (Late st Contact Info) Description 05/03/2024 1:00 PM EDT Hospital Encounter Radiology, [address] [address] 05/03/2024 2:00 PM EDT Hospital Encounter Radiology, [address] [address] 12/06/2024 5:20 PM EDT Office Visit Family Practice, [address] [address] Palmira Dutton PA-C [address] [place] [address] Scheduled Orders Name Type Priority Associated Diagnoses Orde r Schedule LIPID PANEL WITH DIRECT LDL IF TG IS HIGH Lab Routine Prediabetes Essential hypertension with goal blood pressure less than 140/90 Acquired hypothyroidism Mixed hyperlipidemia Expected: 09/26/2024 (Approximate), Expires: 02/23/2025 CBC WITH WBC DIFFERENTIAL Lab Routine Prediabetes Essential hypertension with goal blood pressure less than 140/90 Acquired hypothyroidism Mixed hyperlipidemia Expected: 09/26/2024 (Approximate), Expires: 02/23/2025 COMPREHENSIVE METABOLIC PANEL Lab Routine Prediabetes Essential hypertension with goal blood pressure less than 140/90 Acquired hypothyroidism Mixed hyperlipidemia Expected: 09/26/2024 (Approximate), Expires: 02/23/2025 TSH WITH FREE T4 IF INDICATED Lab Routine Prediabetes Essential hypertension with goal blood pressure less than 140/90 Acquired hypothyroidism Mixed hyperlipidemia Expected: 09/26/2024 (Approximate), Expires: 02/23/2025 HEMOGLOBIN A1C Lab Routine Prediabetes Essential hypertension with goal blood pressure less than 140/90 Acquired hypothyroidism Mixed hyperlipidemia Expected: 09/26/2024 (Approximate), Expires: 02/23/2025 Health Maintenance Due Date Last Done Comments Pneumococcal Vaccine: 65+ Years (1 of 2 - PCV) 01/27/1956 DTap/Tdap Vaccines (1 - Tdap) 01/27/1971 Cologuard 01/27/1997 Fecal Occult Blood Test 01/27/1997 Sigmoidoscopy 01/27/1997 Zoster Vaccines (1 of 2) 01/27/2002 DXA Scan 04/30/2023 04/30/2016 Adult Wellness Visit 09/04/2023 09/04/2022, 08/23/19 22 Colonoscopy 01/25/2024 01/24/2023, 05/15/2012 Colorectal Cancer Screening 01/25/2024 COVID-19 Vaccine (1 - 2022-24 season) 2024 Influenza Vaccine (FLU shot) (#1) 2024 Mammogram 04/28/2024 04/28/2023, 0101/2022, 07/02/2021, Additional history exists GFR 04/22/2025 04/22/2024, 03/19, 11/17/2023, Additional history exists HbA1c 04/22/2025 04/22/2024, 11/17/2023 TSH 04/22/2025 04/22/2024, 04/0 08/2023, 04/04/2023, Additional history exists Depression Screening 04/26/2025 04/26/2024 Albumin/Creatinine Ratio 11/16/2026 11/17/2023 Lipid Panel 04/22/2029 04/22/2024, 04/0 08/2023, 04/04/2023, Additional history exists RETIRED - [...] this encounter Medical Devices Implanted Type Area Waiter/Waitress Third Class Device Identifier Shelf Expiration Date Model / Serial / Lot Iliac Crest F/D 9mm [id number] - [id number] Implanted:Qty: 1 on 12/01/2008 at [place] [facility] [place] Tissue - Human Left: Foot MUSCULOSKELETAL TRANSPLANT FND 10/13/2010 [id number] / [id number] / Graft Chamber Small [id number] - [id number] Implanted:Qty: 1 on 12/01/2008 at [place] [facility] [place] Tissue - Human Left: Foot [employer] [id number] / [id number] / Screw Cannul 7.3mm 208.875 - [id number] Implanted:Qty: 1 on 12/01/2008 at [place] [facility] [place] Left: Foot SYNTHES 208.875 / / Screw Cannul 4.5mm 214.536 - [id number] Implanted:Qty: 1 on 12/01/2008 at [place] [facility] [place] Left: Foot SYNTHES 214.536 / / Screw Cannul 4.5mm 214.538 - [id number] Implanted:Qty: 1 on 12/01/2008 at [place] [facility] [place] Left: Foot SYNTHES 214.538 / / Screw Cannul 4.5mm 214.550 - [id number] Implanted:Qty: 1 on 12/01/2008 at [place] [facility] [place] Left: Foot SYNTHES 214.550 / / Staple Compr 15x15 [id number] - [id number] Implanted:Qty: 1 on 12/01/2008 at [place] [facility] [place] Left: Foot [employer] [id number] / / [place] Suture Biocomposite - [id number] Implanted:Qty: 1 on 03/20/2020 by Isaías Day MD at [facility] Left: Shoulder [employer] 12/16/2023 [id number] / / [id number] documented as of this encounter Visit Diagnoses Diagnosis Preop examination- Primary Preoperative examination, unspecified Primary osteoarthritis of left knee Primary localized osteoarthrosis, lower leg Prediabetes Other abnormal glucose Essential hypertension with goal blood pressure less than 140/90 Acquired hypothyroidism Unspecified hypothyroidism Mixed hyperlipidemia documented in this encounter Advance Directives * Full Code (Latest Code Status on File) Date Activated Date Inactivated Comments 03/20/2020 11:50 AM 03/20/2020 5:36 PM This order re flects the patients wishes and were consensually agreed upon. * Full Code Date Activated Date Inactivated Comments 12/01/2008 3:53 PM 12/02/2008 2:42 PM Care Teams Crusher Loader Equipment Operator Relationship Specialty Start Date End Date Palmira Dutton PA-C [facility] [place] [address] PCP - General Physician Hard Hat Diver 11/07/18 documented as of this encounter
[2024-05-05] MEDS: VANCOMYCIN HCL 1,500 MG in SODIUM CHLORIDE 0.9% 500 ML IV ONE (11:44)
[2024-05-05] MEDS: SODIUM CHLORIDE 0.9% 1,000 ML IV SCH (11:45)
[2024-05-05] MEDS: hydroCHLOROthiazide 25 MG TAB PO SCH (11:48)
[2024-05-05] MEDS: CETIRIZINE HCL 10 MG TABLET PO SCH (11:48)
[2024-05-05] MEDS: MULTIVITAMIN TAB PO SCH (11:48)
[2024-05-05] MEDS: LEVOTHYROXINE SODIUM 50 MCG TABLET PO SCH (11:49)
[2024-05-05] MEDS: lisinopril 5 MG TAB PO SCH (11:49)
[2024-05-05] MEDS: KETOROLAC TROMETHAMINE 15 MG/ML VIAL IV SCH (11:52)
[2024-05-05] MEDS: DOCUSATE SODIUM 100 MG CAP PO SCH (11:52)
[2024-05-05] MEDS: ACETAMINOPHEN 500 MG TAB PO SCH (13:34)
[2024-05-05] MEDS: ceFAZolin 2000MG 2,000 MG/15 ML SYR IV SCH (15:52)
[2024-05-05] MEDS: ONDANSETRON INJ 2 MG/ML 2 ML VIAL IV PRN (16:07)
[2024-05-05] MEDS: oxyCODONE HCL IR 5 MG TAB (IMMEDIATE RELEASE) PO PRN (16:21)
[2024-05-05] MEDS ORDERED: Nursing to Pharmacy Communication SCH (16:45)
[2024-05-05] MEDS ORDERED: ASCORBIC ACID 500 MG TAB PO SCH (17:00)
[2024-05-05] MEDS ORDERED: FERROUS GLUCONATE 324 MG TAB PO SCH (17:00)
[2024-05-05 19:34] VITALS: RESP 18
[2024-05-05] MEDS: SENNA 8.6 MG TAB PO SCH (21:25)
[2024-05-05] MEDS: ASCORBIC ACID 500 MG TAB PO SCH (21:26)
[2024-05-05] MEDS: FERROUS GLUCONATE 324 MG TAB PO SCH (22:19)
--- NOTE | 2024-05-06 06:34 | Orthopedic Progress Note ---
Date of Service May 06, 2024 Assessment & Plan Admission and Anticipated Discharge Date Admission Date: May 05, 2024 Orthopedic Progress Note Postop day 1 status post left total knee replacement. Patient is resting comfortably in bed. She denies any chest pain shortness of breath fever chills nausea vomiting or headache. Has been up and ambulating well. Vital signs are stable she is afebrile. A.m. labs are pending. Physical exam reveals calves nontender can do straight leg raise neurovascular check femoral sciatic nerve is normal wound dressing clean dry and intact. Assessment doing well status post total knee replacement left side continue PT OT and discharge plans for today. Initiate anticoagulation today.
[2024-05-06] MEDS: dexAMETHasone 10 MG in SYRINGE 0 ML IV SCH (08:04)
[2024-05-06] MEDS: APIXABAN 2.5 MG TAB PO SCH (08:07)
[2024-05-06 08:32] VITALS: PULSE 83; TEMP 98.8; O2SAT 92
[2024-05-06 08:34] LABS: Hematocrit (blood only) 32.1 % (37.0-47.0); Hemoglobin 10.4 g/dl (12.0-16.0); Mean Corpuscular Hemoglobin 29.6 pg (25.0-34.0); Mean Corpuscular Hgb Conc 32.4 g/dL (32.0-36.0); Mean Corpuscular Volume 91.5 fL (80.0-100.0); Mean Platelet Volume 9.8 fL (9.4-12.4); Platelet Count 285 K/uL (130-400); RDW Coefficient of Variation 12.9 % (11.5-14.5); RDW Standard Deviation 42.3 fL (36.4-46.3); Red Blood Count 3.51 M/uL (4.20-5.40); White Blood Count 10.46 K/ul (4.8-10.8)
[2024-05-06 08:48] LABS: Calcium 8.4 mg/dl (8.6-10.3); Creatinine Clr Calc Pharmacy 56.6 ml/min; Est GFR (African American) 61.4 ml/min; Potassium 4.1 mmol/L (3.5-5.1)
--- NOTE | 2024-05-06 09:40 | Orthopedic Progress Note ---
Date of Service May 06, 2024 Assessment & Plan (1) Status post left knee replacement: Plan: The patient was educated regarding today's findings. Her postsurgical dressings were changed to a Prevena wound VAC by me. New Kwaku stocking was applied. She will see me in the office in a week for removal of the wound VAC. Written discharge instructions were provided. Prescriptions for Percocet 5/325 mg and Eliquis 2.5 mg were sent to her pharmacy. Continue with ice and elevation of the knee frequently to reduce pain and swelling. Use the walker for ambulation. Use the knee immobilizer when out of bed today and tomorrow. It can be discontinued entirely on Friday morning. Call the office with any other concerns. Admission and Anticipated Discharge Date Admission Date: May 05, 2024 Subjective This 74-year-old female is seen today in her room. She is 1 day status post left total knee arthroplasty. She states she is doing well. Her pain is controlled. She denies any chest pain, shortness of breath, nausea, vomiting, or abdominal pain. She has been out of bed and has been ambulating. She has already worked with physical therapy this morning. She feels ready to be discharged to home. Her is in attendance. No additional complaints. Review of Systems Review of Systems: Unchanged from yesterday. Physical Exam Physical Exam: General: Well-developed, well-nourished, elderly female, in no acute distress. Sitting in bed. Alert and oriented. Skin: Warm and dry with good turgor. No rashes. She has a postsurgical dressing in place on the left leg. Upon removal, she has scant dried blood on the most inner dressings. Her surgical incision is closed. Mehreen are in place. Wound edges are well-approximated. No erythema or warmth. No drainage. No ecchymosis or edema yet. Musculoskeletal: The patient has intact motor function of her left hip, knee, ankle, and toes. She is able to perform a straight leg raise. She has full terminal extension. Flexion to around 50 degrees without difficulty. Neurologic: Gross sensation is intact across the left leg by soft touch. Peripheral pulses are 2+. Results & Data Vital Signs (Past 12 Hours) Vital Signs Temp Pulse Resp BP Pulse Ox O2 Del Method 05/06/24 08:28 37.1 C 83 18 101/62 92 Room Air 05/06/24 03:38 36.4 C L 73 18 125/79 93 Room Air 05/05/24 23:30 36.9 C 71 18 131/84 94 Room Air Laboratory Results CBC obtained today shows a white count of 10.46. H&H of 10.4 and 32.1. Platelets 285,000. PRP is entirely unremarkable. Normal electrolytes. Normal BUN and creatinine. Glucose is 102.
[2024-05-06 10:14] VITALS: BP 174/90
== END 2024-05-06 11:03 | disposition home health service (06) ==
LOC: 3W 05:15 → ASU 05:15